=== PATIENT | female | born 1995 | race American Indian/Alaskan Native ===

== ENCOUNTER 2017-07-05 08:40 | Emergency (ER) | payer MEDICAID ==
[2017-07-05 09:06] VITALS: BP 127/78
--- NOTE | 2017-07-05 11:17 | Emergency Department Report ---
Minor Respiratory - HPI Chief Complaint: Sore Throat Stated Complaint: POSSIBLE STREP Time Seen by Provider: 07/05/17 11:09 Duration: 2 Days Pain Location: Throat Severity: moderate Minor Respiratory: Yes Rhinorrhea, Yes Sore Throat, Yes Able to Tolerate Fluids , Yes Fever, No Ear Pain, No Cough, No Sick Contacts, No Hemoptysis, No Chest Pain, No Shortness of Breath Other History: Pt reports sore throat, fever, and congestion x 2 days. ED Review of Systems ROS: Stated complaint: POSSIBLE STREP Other details as noted in HPI Comment: All other systems reviewed and negative Constitutional: denies: chills, fever Eyes: denies: eye pain, eye discharge, vision change ENT: throat pain, congestion. denies: ear pain Respiratory: denies: cough, shortness of breath, wheezing Cardiovascular: denies: chest pain, palpitations Endocrine: no symptoms reported Gastrointestinal: denies: abdominal pain, nausea, diarrhea Genitourinary: denies: urgency, dysuria, discharge Musculoskeletal: denies: back pain, joint swelling, arthralgia Skin: denies: rash, lesions Neurological: denies: headache, weakness, paresthesias Psychiatric: denies: anxiety, depression Hematological/Lymphatic: denies: easy bleeding, easy bruising ED Past Medical Hx - Past Medical History Previous Medical History?: No Hx Asthma: Yes - Surgical History Past Surgical History?: Yes Additional Surgical History: c-sectionx1 - Social History Smoking Status: Never Smoker Substance Use Type: None - Medications Home Medications: Home Medications Medication Instructions Recorded Confirmed Last Taken Type Albuterol Sulfate [Ventolin HFA] 2 puff IH Q4H PRN #1 hfa.aer.ad 02/13/15 Unknown Rx Fluticasone [Flonase] 2 spray NS QDAY #1 bottle 02/13/15 Unknown Rx Loratadine [Claritin] 10 mg PO DAILY #30 tablet 02/13/15 Unknown Rx Amoxicillin [Amoxicillin TAB] 875 mg PO BID #20 tablet 07/05/17 Unknown Rx predniSONE [Deltasone] 40 mg PO QDAY #10 tab 07/05/17 Unknown Rx Minor Respiratory Exam - Exam General: Vital signs noted. No distress. Alert and acting appropriately. HEENT: Yes Pharyngeal Erythema, Yes Pharyngeal Exudates (2+ exudative tonsillitis, no abscess seen), Yes Moist Mucous Membranes, No Rhinorrhea, No Conjuctival Injection, No Frontal Tenderness, No Maxillary Tenderness Ear: Neither TM Bulge, Neither TM Erythema, Neither EAC Pain, Neither EAC Discharge Neck: Yes Adenopathy (tender anterior cervical ), Yes Supple Lungs: Yes Good Air Exchange, No Wheezes, No Ronchi, No Stridor, No Cough, No Labored Respirations, No Retractions, No Use of Accessory Muscles, No Other Abnormal Lung Sounds Heart: Yes Regular, No Murmur Abdomen: Yes Normal Bowel Sounds, No Tenderness, No Peritoneal Signs Skin: No Rash, No Edema Neurologic: Alert and oriented, no deficits. Musculoskeletal: Unremarkable. ED Course Vital Signs 07/05/17 08:48 Temperature 98.5 F Pulse Rate 106 H Respiratory 18 Rate Blood Pressure 127/78 O2 Sat by Pulse 100 Oximetry - Reevaluation(s) Reevaluation #1: 07/05/17 11:15 Pt is in NAD stable for d/c. ED Medical Decision Making - Lab Data hcg neg, strep pos - Medical Decision Making Will treat for strep. Follow with PCP. - Differential Diagnosis strep, mono Critical care attestation.: If time is entered above; I have spent that time in minutes in the direct care of this critically ill patient, excluding procedure time. ED Disposition Clinical Impression: Streptococcal tonsillitis Disposition: - TO HOME OR SELFCARE Is pt being admited?: No Condition: Good Instructions: Strep Throat (ED) Prescriptions: Amoxicillin [Amoxicillin TAB] 875 mg PO BID #20 tablet predniSONE [Deltasone] 40 mg PO QDAY #10 tab Referrals: PRIMARY CARE, [Primary Care Provider] - 3-5 Days Forms: Work/School Release Form(ED) Time of Disposition: 11:16
== END 2017-07-05 11:24 | disposition home or self-care (01) ==
LOC: ED 08:40
DX: J03.00 Acute streptococcal tonsillitis, unspecified (principal)
CPT/HCPCS: 81025; 87430; 99283

== ENCOUNTER 2017-08-13 22:35 | Emergency (ER) | payer SELFPAY | END 2017-08-13 23:15 | disposition left against medical advice (07) | LOC: ED 22:35 | DX: R42 Dizziness and giddiness (principal); N64.4 Mastodynia; Z53.21 Procedure and treatment not carried out due to patient leaving prior to being seen by health care provider ==

== ENCOUNTER 2017-11-09 20:12 | Emergency (ER) | payer SELFPAY ==
[2017-11-09 21:03] LABS: Basophils % (Auto) 0.9 % (0.0-1.8); Eosinophils # (Auto) 0.3 K/mm3 (0.0-0.4); Hematocrit 38.9 % (30.3-42.9); Hemoglobin 12.4 gm/dl (10.1-14.3); Lymphocytes # (Auto) 2.1 K/mm3 (1.2-5.4); Lymphocytes % (Auto) 42.6 % (13.4-35.0); Mean Corpuscular HGB Conc 32 % (30-34); Mean Corpuscular Hemoglobin 28 pg (28-32); Mean Corpuscular Volume 89 fl (79-97); Monocytes # (Auto) 0.3 K/mm3 (0.0-0.8); Monocytes % (Auto) 6.4 % (0.0-7.3); Platelet Count 414 K/mm3 (140-440); Red Blood Count 4.39 M/mm3 (3.65-5.03); Red Cell Distribution Width 13.3 % (13.2-15.2)
[2017-11-09 21:39] LABS: Bilirubin,Urine NEG (Negative); Blood,Urine MOD (Negative); Color,Urine Yellow (Yellow); Mucus,Urine FEW /HPF; Urobilinogen,Urine < 2.0 mg/dL (<2.0)
--- NOTE | 2017-11-09 22:01 | Emergency Department Report ---
HPI - General Chief Complaint: Vaginal Bleeding Time Seen by Provider: 11/09/17 21:47 - HPI HPI: Room 10 The patient is a 22-year-old female presenting with chief complaint of pelvic pain and vaginal bleeding. The patient states past 2 days she is lower pelvic pain that was initially intermittent but now constant. The patient states for the past 2 days she has had heavier than normal vaginal bleeding. The patient states she has an implanted control medication but cannot remember the name (was placed approximately 2 years ago). The patient states her cycles are usually extremely light and irregular since the implant. The patient states past 2 days her vaginal bleeding has been heavier than normal. The patient admits to dysuria but denies vaginal discharge. Patient denies any history of fever Location: [See above] Duration: 2 days Quality: Cramping Severity: Moderate Modifying factors: [see above] Context: [see above] Mode of transportation: [not driving] ED Past Medical Hx - Past Medical History Previous Medical History?: Yes Hx Asthma: Yes - Surgical History Past Surgical History?: Yes Additional Surgical History: c-sectionx1 - Family History Family history: no significant - Social History Smoking Status: Never Smoker Substance Use Type: None (denies illicit drug use), Alcohol (occasional) - Medications Home Medications: Home Medications Medication Instructions Recorded Confirmed Last Taken Type Albuterol Sulfate [Ventolin HFA] 2 puff IH Q4H PRN #1 hfa.aer.ad 02/13/15 Unknown Rx Fluticasone [Flonase] 2 spray NS QDAY #1 bottle 02/13/15 Unknown Rx Loratadine [Claritin] 10 mg PO DAILY #30 tablet 02/13/15 Unknown Rx Amoxicillin [Amoxicillin TAB] 875 mg PO BID #20 tablet 07/05/17 Unknown Rx predniSONE [Deltasone] 40 mg PO QDAY #10 tab 07/05/17 Unknown Rx Ciprofloxacin HCl [Ciprofloxacin 500 mg PO BID #20 tablet 11/10/17 Unknown Rx TAB] Ibuprofen [Motrin 800 MG tab] 800 mg PO Q8HR PRN #20 tablet 11/10/17 Unknown Rx traMADol [Ultram] 50 mg PO Q6HR PRN #14 tablet 11/10/17 Unknown Rx ED Review of Systems ROS: Stated complaint: PELVIC PAIN Other details as noted in HPI Constitutional: denies: fever Gastrointestinal: abdominal pain Genitourinary: dysuria, abnormal menses. denies: discharge Physical Exam - Physical Exam Vital Signs: Vital Signs 11/09/17 20:30 Temperature 97.7 F Pulse Rate 82 Respiratory 17 Rate Blood Pressure 146/73 O2 Sat by Pulse 100 Oximetry Physical Exam: GENERAL: The patient is well-developed well-nourished female lying on stretcher not appear to be in acute distress. [] HEENT: Normocephalic. Atraumatic. Extraocular motions are intact. Patient has moist mucous membranes. NECK: Supple. Trachea midline CHEST/LUNGS: Clear to auscultation. There is no respiratory distress noted. HEART/CARDIOVASCULAR: Regular. There is no tachycardia. There is no gallop rub or murmur. ABDOMEN: Abdomen is soft, with discomfort to palpation in the suprapubic region. Patient has normal bowel sounds. There is no abdominal distention. SKIN: There is no rash. There is no edema. There is no diaphoresis. NEURO: The patient is awake, alert, and oriented. The patient is cooperative. The patient has normal speech MUSCULOSKELETAL: There is bilateral CVA tenderness. There is no evidence of acute injury. ED Course Vital Signs 11/09/17 20:30 Temperature 97.7 F Pulse Rate 82 Respiratory 17 Rate Blood Pressure 146/73 O2 Sat by Pulse 100 Oximetry ED Medical Decision Making - Lab Data Result diagrams: 11/09/17 20:44 Laboratory Tests 11/09/17 11/09/17 11/09/17 20:44 20:44 20:44 WBC 5.0 RBC 4.39 Hgb 12.4 Hct 38.9 MCV 89 MCH 28 MCHC 32 RDW 13.3 Plt Count 414 Lymph % (Auto) 42.6 H [place] % (Auto) 6.4 Eos % (Auto) 6.0 H Baso % (Auto) 0.9 Lymph # 2.1 [place] # 0.3 Eos # 0.3 Baso # 0.0 Seg Neutrophils % 44.1 Seg Neutrophils # 2.2 HCG, Quant < 2 Urine Color Urine Turbidity Urine pH Ur Specific [place] Urine Protein Urine Glucose (UA) Urine Ketones Urine Blood Urine Nitrite Urine Bilirubin Urine Urobilinogen Ur Leukocyte Esterase Urine WBC (Auto) Urine RBC (Auto) U Epithel Cells (Auto) Urine Mucus Blood Type B POSITIVE Antibody Screen Negative 11/09/17 21:05 WBC RBC Hgb Hct MCV MCH MCHC RDW Plt Count Lymph % (Auto) [place] % (Auto) Eos % (Auto) Baso % (Auto) Lymph # [place] # Eos # Baso # Seg Neutrophils % Seg Neutrophils # HCG, Quant Urine Color Yellow Urine Turbidity Clear Urine pH 7.0 Ur Specific [place] 1.025 Urine Protein 30 mg/dl Urine Glucose (UA) Neg Urine Ketones Neg Urine Blood Mod Urine Nitrite Neg Urine Bilirubin Neg Urine Urobilinogen < 2.0 Ur Leukocyte Esterase Mod Urine WBC (Auto) 103.0 H Urine RBC (Auto) 7.0 U Epithel Cells (Auto) 8.0 Urine Mucus Few Blood Type Antibody Screen Wet prep-no clue cells, yeast or Trichomonas seen - Radiology Data Radiology results: report reviewed (pelvic ultrasound), image reviewed (pelvic ultrasound) [facility] [address] [id number] Ultrasound Report Signed Patient: LEWIS DECKER MR#: [id number] : 1995 Acct:[id number] Age/Sex: 22 / F ADM Date: 11/09/17 Loc: ED Attending Dr: Ordering Physician: ALOK WEISS MD Date of Service: 11/09/17 Procedure(s): US transvaginal Accession Number(s): [id number] cc: ALOK WEISS MD FINAL REPORT EXAM: US TRANSVAGINAL HISTORY: abnormal vaginal bleeding, pelvic pain TECHNIQUE: Ultrasound pelvis transvaginal PRIORS: None. FINDINGS: The uterus measures 6.4 x 4.0 x 5.0 centimeters. No myometrial abnormalities are identified. Endometrial stripe is within normal limits 0.59 centimeters Right ovary is 5.0 x 3.3 x 4.3 centimeters. A 3.6 centimeter right ovarian cyst is noted Left ovary is 2.8 x 1.4 x 2.4 centimeters. No free fluid identified in the cul-de-sac IMPRESSION: 3.6 centimeter right ovarian cyst Otherwise negative study Transcribed By: BENSON Dictated By: KITA GABRIEL MD Electronically Authenticated By: KITA GABRIEL MD Signed Date/Time: 11/09/172240 DD/ 40 TD/TT: 11/09/172240 - Differential Diagnosis missed , UTI, pyelonephritis, uterine fibroids Critical care attestation.: If time is entered above; I have spent that time in minutes in the direct care of this critically ill patient, excluding procedure time. ED Disposition Clinical Impression: Pyelonephritis, Acute pelvic pain, Right ovarian cyst Disposition: TO HOME OR SELFCARE Is pt being admited?: No Does the pt Need Aspirin: No Condition: Stable Instructions: Urinary Tract Infection in Women (ED) Additional Instructions: Return to the emergency department immediately should you develop worsening symptoms, fever, inability to tolerate food or liquid or any other concerns. 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 Please follow-up with him for further evaluation) Time of Disposition: 00:19
--- NOTE | 2017-11-09 22:45 | Ultrasound Report ---
FINAL REPORT EXAM: US PELVIC COMPLETE HISTORY: abnormal vaginal bleeding, pelvic pain TECHNIQUE: Ultrasound pelvis transabdominal PRIORS: None. FINDINGS: The uterus measures 6.4 x 4.0 x 5.0 centimeters. No myometrial abnormalities are identified. Endometrial stripe is within normal limits 0.59 centimeters Right ovary is 5.0 x 3.3 x 4.3 centimeters. A 3.6 centimeter right ovarian cyst is noted Left ovary is 2.8 x 1.4 x 2.4 centimeters. No free fluid identified in the cul-de-sac IMPRESSION: 3.6 centimeter right ovarian cyst Otherwise negative study
--- NOTE | 2017-11-09 22:46 | Ultrasound Report ---
FINAL REPORT EXAM: US TRANSVAGINAL HISTORY: abnormal vaginal bleeding, pelvic pain TECHNIQUE: Ultrasound pelvis transvaginal PRIORS: None. FINDINGS: The uterus measures 6.4 x 4.0 x 5.0 centimeters. No myometrial abnormalities are identified. Endometrial stripe is within normal limits 0.59 centimeters Right ovary is 5.0 x 3.3 x 4.3 centimeters. A 3.6 centimeter right ovarian cyst is noted Left ovary is 2.8 x 1.4 x 2.4 centimeters. No free fluid identified in the cul-de-sac IMPRESSION: 3.6 centimeter right ovarian cyst Otherwise negative study
[2017-11-10] MEDS ORDERED: ROCEPHIN IM ONE (00:07)
[2017-11-10] MEDS ORDERED: XYLOCAINE 1% MPF 5 mL INFILTRATI ONE (00:07)
[2017-11-10] MEDS ORDERED: ZITHROMAX PO ONE (00:07)
[2017-11-10 00:45] VITALS: BP 119/57
== END 2017-11-10 00:51 | disposition home or self-care (01) ==
LOC: ED 20:12
DX: N12 Tubulo-interstitial nephritis, not specified as acute or chronic (principal); N83.201 Unspecified ovarian cyst, right side; J45.909 Unspecified asthma, uncomplicated
CPT/HCPCS: 36415; 76830; 76856; 81001; 84702; 85025; 86850; 86900; 86901; 87210; 87591; 96372; 99284; J0696

== ENCOUNTER 2018-11-09 13:32 | Emergency (ER) | payer MEDICAID ==
[2018-11-09 13:43] VITALS: BP 135/70
--- NOTE | 2018-11-09 13:44 | Emergency Department Report ---
Chief Complaint: Sore Throat Stated Complaint: DIZZY/THROAT PAIN Time Seen by Provider: 11/09/18 13:43 - HPI History of Present Illness: simple urti nontoxic no fever mse completed - Exam Vital Signs: Vital Signs 11/09/18 13:41 Temperature 97.8 F Pulse Rate 100 H Respiratory 20 Rate Blood Pressure 135/70 O2 Sat by Pulse 98 Oximetry MSE screening note: Focused history and physical exam performed. Due to findings the following was ordered: ED Disposition for MSE Condition: Stable
--- NOTE | 2018-11-09 15:40 | Emergency Department Report ---
ED ENT HPI - General Chief complaint: Sore Throat Stated complaint: DIZZY/THROAT PAIN Time Seen by Provider: 11/09/18 13:43 Source: patient Mode of arrival: Ambulatory Limitations: No Limitations - History of Present Illness MD complaint: sore throat -: days(s) (3) Severity: moderate Quality: sharp Consistency: constant Worsens with: swallowing Associated Symptoms: fever, cough - Related Data Previous Rx's Medication Instructions Recorded Last Taken Type Albuterol Sulfate [Ventolin HFA] 2 puff IH Q4H PRN #1 hfa.aer.ad 02/13/15 Unknown Rx Fluticasone [Flonase] 2 spray NS QDAY #1 bottle 02/13/15 Unknown Rx Loratadine [Claritin] 10 mg PO DAILY #30 tablet 02/13/15 Unknown Rx Amoxicillin [Amoxicillin TAB] 875 mg PO BID #20 tablet 07/05/17 Unknown Rx predniSONE [Deltasone] 40 mg PO QDAY #10 tab 07/05/17 Unknown Rx Ciprofloxacin HCl [Ciprofloxacin 500 mg PO BID #20 tablet 11/10/17 Unknown Rx TAB] Ibuprofen [Motrin 800 MG tab] 800 mg PO Q8HR PRN #20 tablet 11/10/17 Unknown Rx traMADol [Ultram] 50 mg PO Q6HR PRN #14 tablet 11/10/17 Unknown Rx Amoxicillin [Amoxicillin TAB] 875 mg PO BID #20 tablet 11/09/18 Unknown Rx Allergies Allergy/AdvReac Type Severity Reaction Status Date / Time No Known Allergies Allergy Verified 02/13/15 02:15 ED Dental HPI - General Chief complaint: Sore Throat Stated complaint: DIZZY/THROAT PAIN Time Seen by Provider: 11/09/18 13:43 Source: patient Mode of arrival: Ambulatory Limitations: No Limitations - Related Data Previous Rx's Medication Instructions Recorded Last Taken Type Albuterol Sulfate [Ventolin HFA] 2 puff IH Q4H PRN #1 hfa.aer.ad 02/13/15 Unknown Rx Fluticasone [Flonase] 2 spray NS QDAY #1 bottle 02/13/15 Unknown Rx Loratadine [Claritin] 10 mg PO DAILY #30 tablet 02/13/15 Unknown Rx Amoxicillin [Amoxicillin TAB] 875 mg PO BID #20 tablet 07/05/17 Unknown Rx predniSONE [Deltasone] 40 mg PO QDAY #10 tab 07/05/17 Unknown Rx Ciprofloxacin HCl [Ciprofloxacin 500 mg PO BID #20 tablet 11/10/17 Unknown Rx TAB] Ibuprofen [Motrin 800 MG tab] 800 mg PO Q8HR PRN #20 tablet 11/10/17 Unknown Rx traMADol [Ultram] 50 mg PO Q6HR PRN #14 tablet 11/10/17 Unknown Rx Amoxicillin [Amoxicillin TAB] 875 mg PO BID #20 tablet 11/09/18 Unknown Rx Allergies Allergy/AdvReac Type Severity Reaction Status Date / Time No Known Allergies Allergy Verified 02/13/15 02:15 ED Review of Systems ROS: Stated complaint: DIZZY/THROAT PAIN Other details as noted in HPI Comment: All other systems reviewed and negative Constitutional: chills. denies: fever ENT: throat pain Respiratory: cough. denies: orthopnea, shortness of breath, SOB with exertion, SOB at rest, wheezing Cardiovascular: denies: chest pain, palpitations Gastrointestinal: denies: abdominal pain, nausea, vomiting, diarrhea, constipation, hematemesis, melena, hematochezia Musculoskeletal: denies: back pain Neurological: denies: headache, weakness, numbness, paresthesias, confusion ED Past Medical Hx - Past Medical History Previous Medical History?: No Hx Asthma: Yes - Surgical History Past Surgical History?: Yes Additional Surgical History: c-sectionx1 - Social History Smoking Status: Never Smoker Substance Use Type: None - Medications Home Medications: Home Medications Medication Instructions Recorded Confirmed Last Taken Type Albuterol Sulfate [Ventolin HFA] 2 puff IH Q4H PRN #1 hfa.aer.ad 02/13/15 Unknown Rx Fluticasone [Flonase] 2 spray NS QDAY #1 bottle 02/13/15 Unknown Rx Loratadine [Claritin] 10 mg PO DAILY #30 tablet 02/13/15 Unknown Rx Amoxicillin [Amoxicillin TAB] 875 mg PO BID #20 tablet 07/05/17 Unknown Rx predniSONE [Deltasone] 40 mg PO QDAY #10 tab 07/05/17 Unknown Rx Ciprofloxacin HCl [Ciprofloxacin 500 mg PO BID #20 tablet 11/10/17 Unknown Rx TAB] Ibuprofen [Motrin 800 MG tab] 800 mg PO Q8HR PRN #20 tablet 11/10/17 Unknown Rx traMADol [Ultram] 50 mg PO Q6HR PRN #14 tablet 11/10/17 Unknown Rx Amoxicillin [Amoxicillin TAB] 875 mg PO BID #20 tablet 11/09/18 Unknown Rx ED Physical Exam - General Limitations: No Limitations General appearance: alert, in no apparent distress - Head Head exam: Present: atraumatic, normocephalic, normal inspection - Eye Eye exam: Present: normal appearance - ENT ENT exam: Present: other (pharyngeal erythema, tonsillar exudate.) - Neck Neck exam: Present: normal inspection, full ROM. Absent: tenderness, meningismus, lymphadenopathy, thyromegaly - Respiratory Respiratory exam: Present: normal lung sounds bilaterally - Cardiovascular Cardiovascular Exam: Present: regular rate, normal rhythm, normal heart sounds - GI/Abdominal GI/Abdominal exam: Present: soft, normal bowel sounds. Absent: distended, tenderness, guarding, rebound, rigid, organomegaly, mass, bruit, pulsatile mass - Extremities Exam Extremities exam: Present: normal inspection, full ROM, normal capillary refill - Back Exam Back exam: Present: normal inspection, full ROM. Absent: CVA tenderness (R), CVA tenderness (L), muscle spasm, paraspinal tenderness, vertebral tenderness, rash noted - Neurological Exam Neurological exam: Present: alert, oriented X3, CN II-XII intact, normal gait, reflexes normal - Skin Skin exam: Present: warm, intact, normal color ED Course Vital Signs 11/09/18 13:41 Temperature 97.8 F Pulse Rate 100 H Respiratory 20 Rate Blood Pressure 135/70 O2 Sat by Pulse 98 Oximetry ED Medical Decision Making - Medical Decision Making Strep test is negative but patient has tonsillar exudate, patient treated with amoxicillin for 10 days. Critical care attestation.: If time is entered above; I have spent that time in minutes in the direct care of this critically ill patient, excluding procedure time. ED Disposition Clinical Impression: Pharyngitis Disposition: DC-01 TO HOME OR SELFCARE Is pt being admited?: No Condition: Stable Instructions: Pharyngitis (ED) Prescriptions: Amoxicillin [Amoxicillin TAB] 875 mg PO BID #20 tablet Referrals: [facility] [Provider Group] - 3-5 Days
[2018-11-09 16:11] LABS: Bacteria,Urine 1+ /HPF (Negative); Bilirubin,Urine NEG (Negative); Blood,Urine NEG (Negative); Color,Urine Yellow (Yellow); Mucus,Urine 1+ /HPF; Protein,Urine <15 mg/dL mg/dL (Negative)
== END 2018-11-09 17:12 | disposition home or self-care (01) ==
LOC: ED 13:32
DX: J02.9 Acute pharyngitis, unspecified (principal); J45.909 Unspecified asthma, uncomplicated
CPT/HCPCS: 81001; 87116; 87430; 99283

== ENCOUNTER 2019-01-09 18:06 | Emergency (ER) | payer MEDICAID ==
[2019-01-09 18:16] VITALS: BP 127/70
[2019-01-09 19:09] LABS: Alanine Aminotransferase 41 units/L (7-56); BUN/Creatinine Ratio 9; Blood Urea Nitrogen 6 mg/dL (7-17); Calcium 8.7 mg/dL (8.4-10.2); Hemolysis Index 61
[2019-01-09 19:15] LABS: Bilirubin,Urine NEG (Negative); Blood,Urine NEG (Negative); Color,Urine Yellow (Yellow); Mucus,Urine 1+ /HPF; Protein,Urine <15 mg/dL mg/dL (Negative); Urobilinogen,Urine < 2.0 mg/dL (<2.0)
[2019-01-09 19:17] LABS: Basophils % (Auto) 0.3 % (0.0-1.8); Eosinophils # (Auto) 0.3 K/mm3 (0.0-0.4); Eosinophils % (Auto) 6.1 % (0.0-4.3); Hematocrit 36.8 % (30.3-42.9); Lymphocytes # (Auto) 1.7 K/mm3 (1.2-5.4); Lymphocytes % (Auto) 32.6 % (13.4-35.0); Mean Corpuscular HGB Conc 33 % (30-34); Mean Corpuscular Volume 90 fl (79-97); Monocytes # (Auto) 0.4 K/mm3 (0.0-0.8); Monocytes % (Auto) 7.4 % (0.0-7.3); Platelet Count 365 K/mm3 (140-440); Red Blood Count 4.07 M/mm3 (3.65-5.03); Red Cell Distribution Width 14.3 % (13.2-15.2)
--- NOTE | 2019-01-09 20:22 | Emergency Department Report ---
ED Female HPI - General Chief complaint: Abdominal Pain Stated complaint: PELVIC PAIN/SWOLLEN FEET/VOMITTING Time Seen by Provider: 01/09/19 20:10 Source: patient Mode of arrival: Ambulatory Limitations: No Limitations - History of Present Illness Initial comments: Pt is a 23 yo female who presents to the ED with c/o pelvic pain that began 2 weeks ago. She has associated nausea and a couple episodes of diarrhea. she also is experiencing vaginal itching and irritation. she denies any dysuria, emesis, fever, vaginal discharge. The patient states she is sexually active and occasionally uses protection, she states her partner was recently diagnosed with chlamydia and she would like to receive testing at this time. she denies any hx of STD previously. LNMP December 02. she states she began having spotting yesterday like she was about to start her cycle. she states she also experiences diarrhea around her cycle. - Related Data Previous Rx's Medication Instructions Recorded Last Taken Type Albuterol Sulfate [Ventolin HFA] 2 puff IH Q4H PRN #1 hfa.aer.ad 02/13/15 Unknown Rx Fluticasone [Flonase] 2 spray NS QDAY #1 bottle 02/13/15 Unknown Rx Loratadine [Claritin] 10 mg PO DAILY #30 tablet 02/13/15 Unknown Rx Amoxicillin [Amoxicillin TAB] 875 mg PO BID #20 tablet 07/05/17 Unknown Rx predniSONE [Deltasone] 40 mg PO QDAY #10 tab 07/05/17 Unknown Rx Ciprofloxacin HCl [Ciprofloxacin 500 mg PO BID #20 tablet 11/10/17 Unknown Rx TAB] Ibuprofen [Motrin 800 MG tab] 800 mg PO Q8HR PRN #20 tablet 11/10/17 Unknown Rx traMADol [Ultram] 50 mg PO Q6HR PRN #14 tablet 11/10/17 Unknown Rx Amoxicillin [Amoxicillin TAB] 875 mg PO BID #20 tablet 11/09/18 Unknown Rx Allergies Allergy/AdvReac Type Severity Reaction Status Date / Time No Known Allergies Allergy Verified 02/13/15 02:15 ED Review of Systems ROS: Stated complaint: PELVIC PAIN/SWOLLEN FEET/VOMITTING Other details as noted in HPI Comment: All other systems reviewed and negative ED Past Medical Hx - Past Medical History Previous Medical History?: Yes Hx Asthma: Yes - Surgical History Past Surgical History?: Yes Additional Surgical History: c-sectionx1 - Social History Smoking Status: Never Smoker Substance Use Type: None - Medications Home Medications: Home Medications Medication Instructions Recorded Confirmed Last Taken Type Albuterol Sulfate [Ventolin HFA] 2 puff IH Q4H PRN #1 hfa.aer.ad 02/13/15 Unknown Rx Fluticasone [Flonase] 2 spray NS QDAY #1 bottle 02/13/15 Unknown Rx Loratadine [Claritin] 10 mg PO DAILY #30 tablet 02/13/15 Unknown Rx Amoxicillin [Amoxicillin TAB] 875 mg PO BID #20 tablet 07/05/17 Unknown Rx predniSONE [Deltasone] 40 mg PO QDAY #10 tab 07/05/17 Unknown Rx Ciprofloxacin HCl [Ciprofloxacin 500 mg PO BID #20 tablet 11/10/17 Unknown Rx TAB] Ibuprofen [Motrin 800 MG tab] 800 mg PO Q8HR PRN #20 tablet 11/10/17 Unknown Rx traMADol [Ultram] 50 mg PO Q6HR PRN #14 tablet 11/10/17 Unknown Rx Amoxicillin [Amoxicillin TAB] 875 mg PO BID #20 tablet 11/09/18 Unknown Rx ED Physical Exam - General Limitations: No Limitations General appearance: alert, in no apparent distress - Head Head exam: Present: atraumatic, normocephalic - Eye Eye exam: Present: normal appearance, PERRL - ENT ENT exam: Present: mucous membranes moist - Respiratory Respiratory exam: Present: normal lung sounds bilaterally. Absent: respiratory distress, wheezes, rales, rhonchi, stridor, chest wall tenderness, accessory muscle use, decreased breath sounds, prolonged expiratory - Cardiovascular Cardiovascular Exam: Present: regular rate, normal rhythm, normal heart sounds. Absent: systolic murmur, diastolic murmur, rubs, gallop - GI/Abdominal GI/Abdominal exam: Present: soft, tenderness (mild suprapubic discomfort to palpation, no tenderness to palpation of any of the other quadrants of the abdomen), normal bowel sounds. Absent: distended, guarding, rebound, rigid - External exam: Present: normal external exam. 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 Absent: erythema, vaginal bleeding, foreign body, tissue, laceration Bi-manual exam: Present: normal bi-manual exam. Absent: cervical motion tendernes, adnexal tenderness, adnexal mass, uterine enlargement, uterine tenderness - Back Exam Back exam: Absent: CVA tenderness (R), CVA tenderness (L) - Neurological Exam Neurological exam: Present: alert, oriented X3 - Psychiatric Psychiatric exam: Present: normal affect, normal mood - Skin Skin exam: Present: warm, dry, intact ED Course Vital Signs 01/09/19 01/09/19 18:11 21:51 Temperature 98.9 F 98.9 F Pulse Rate 81 81 Respiratory 16 16 Rate Blood Pressure 127/70 O2 Sat by Pulse 97 97 Oximetry ED Medical Decision Making - Lab Data Result diagrams: 01/09/19 18:23 01/09/19 18:23 Lab Results 01/09/19 01/09/19 01/09/19 Range/Units 18:23 18:23 18:23 WBC 5.3 (4.5-11.0) K/mm3 RBC 4.07 (3.65-5.03) M/mm3 Hgb 12.0 (10.1-14.3) gm/dl Hct 36.8 (30.3-42.9) % MCV 90 (79-97) fl MCH 30 (28-32) pg MCHC 33 (30-34) % RDW 14.3 (13.2-15.2) % Plt Count 365 (140-440) K/mm3 Lymph % (Auto) 32.6 (13.4-35.0) % Hayes % (Auto) 7.4 H (0.0-7.3) % Eos % (Auto) 6.1 H (0.0-4.3) % Baso % (Auto) 0.3 (0.0-1.8) % Lymph # 1.7 (1.2-5.4) K/mm3 Hayes # 0.4 (0.0-0.8) K/mm3 Eos # 0.3 (0.0-0.4) K/mm3 Baso # 0.0 (0.0-0.1) K/mm3 Seg Neutrophils % 53.6 (40.0-70.0) % Seg Neutrophils # 2.9 (1.8-7.7) K/mm3 Sodium 137 (137-145) mmol/L Potassium 4.3 (3.6-5.0) mmol/L Chloride 102.5 (98-107) mmol/L Carbon Dioxide 22 (22-30) mmol/L Anion Gap 17 mmol/L BUN 6 L (7-17) mg/dL Creatinine 0.7 (0.7-1.2) mg/dL Estimated GFR > 60 ml/min BUN/Creatinine Ratio 9 % Glucose 84 (65-100) mg/dL Calcium 8.7 (8.4-10.2) mg/dL Total Bilirubin 0.40 (0.1-1.2) mg/dL AST 85 H (5-40) units/L ALT 41 (7-56) units/L Alkaline Phosphatase 68 (35-129) units/L Total Protein 7.4 (6.3-8.2) g/dL Albumin 4.0 (3.9-5) g/dL Albumin/Globulin Ratio 1.2 % HCG, Qual Negative (Negative) Urine Color (Yellow) Urine Turbidity (Clear) Urine pH (5.0-7.0) Ur Specific [place] (1.003-1.030) Urine Protein (Negative) mg/dL Urine Glucose (UA) (Negative) mg/dL Urine Ketones (Negative) mg/dL Urine Blood (Negative) Urine Nitrite (Negative) Urine Bilirubin (Negative) Urine Urobilinogen (<2.0) mg/dL Ur Leukocyte Esterase (Negative) Urine WBC (Auto) (0.0-6.0) /HPF Urine RBC (Auto) (0.0-6.0) /HPF U Epithel Cells (Auto) (0-13.0) /HPF Urine Mucus /HPF 01/09/ Range/Units 18:43 WBC (4.5-11.0) K/mm3 RBC (3.65-5.03) M/mm3 Hgb (10.1-14.3) gm/dl Hct (30.3-42.9) % MCV (79-97) fl MCH (28-32) pg MCHC (30-34) % RDW (13.2-15.2) % Plt Count (140-440) K/mm3 Lymph % (Auto) (13.4-35.0) % Hayes % (Auto) (0.0-7.3) % Eos % (Auto) (0.0-4.3) % Baso % (Auto) (0.0-1.8) % Lymph # (1.2-5.4) K/mm3 Hayes # (0.0-0.8) K/mm3 Eos # (0.0-0.4) K/mm3 Baso # (0.0-0.1) K/mm3 Seg Neutrophils % (40.0-70.0) % Seg Neutrophils # (1.8-7.7) K/mm3 Sodium (137-145) mmol/L Potassium (3.6-5.0) mmol/L Chloride (98-107) mmol/L Carbon Dioxide (22-30) mmol/L Anion Gap mmol/L BUN (7-17) mg/dL Creatinine (0.7-1.2) mg/dL Estimated GFR ml/min BUN/Creatinine Ratio % Glucose (65-100) mg/dL Calcium (8.4-10.2) mg/dL Total Bilirubin (0.1-1.2) mg/dL AST (5-40) units/L ALT (7-56) units/L Alkaline Phosphatase (35-129) units/L Total Protein (6.3-8.2) g/dL Albumin (3.9-5) g/dL Albumin/Globulin Ratio % HCG, Qual (Negative) Urine Color Yellow (Yellow) Urine Turbidity Slightly-cloudy (Clear) Urine pH 6.0 (5.0-7.0) Ur Specific [place] 1.025 (1.003-1.030) Urine Protein <15 mg/dl (Negative) mg/dL Urine Glucose (UA) Neg (Negative) mg/dL Urine Ketones Neg (Negative) mg/dL Urine Blood Neg (Negative) Urine Nitrite Neg (Negative) Urine Bilirubin Neg (Negative) Urine Urobilinogen < 2.0 (<2.0) mg/dL Ur Leukocyte Esterase Neg (Negative) Urine WBC (Auto) 1.0 (0.0-6.0) /HPF Urine RBC (Auto) 1.0 (0.0-6.0) /HPF U Epithel Cells (Auto) 2.0 (0-13.0) /HPF Urine Mucus 1+ /HPF Microbiology 01/09/19 Unknown Cervix Wet Prep - Final - Medical Decision Making Pt is a 23 yo female who presents to the ED with c/o pelvic pain that began 2 weeks ago. She has associated nausea and a couple episodes of diarrhea. she also is experiencing vaginal itching and irritation. she denies any dysuria, emesis, fever, vaginal discharge. The patient states she is sexually active and occasionally uses protection, she states her partner was recently diagnosed with chlamydia and she would like to receive testing at this time. she denies any hx of STD previously. LNMP December 02. she states she began having spotting yesterday like she was about to start her cycle. she states she also experiences diarrhea around her cycle. UA is normal. urine preg is negative. wet prep with no BV, trichomonas, or yeast. pt has white/yellow discharge on exam, no CMT present, no abd tenderness, no leukocytosis, pt tolerating PO intake while in the ED. pt swabbed for G/C, treated with azithromycin and ceftriaxone. advised pt that G/C results could be obtained by medical records in 1 week. abstain from sexual intercourse for 10 days. have partner tested and treated. if concerned for any other STDs be seen by health department, [facility], or PCP. follow up with [facility] in the next 2-3 days for further evaluation. follow up with PCP in the next 2-3 days. Return to the ED for any new or worsening symptoms. Critical care attestation.: If time is entered above; I have spent that time in minutes in the direct care of this critically ill patient, excluding procedure time. ED Disposition Clinical Impression: Pelvic pain, Screen for STD (sexually transmitted disease) Disposition: TO HOME OR SELFCARE Is pt being admited?: No Does the pt Need Aspirin: No Condition: Stable Instructions: Sexually Transmitted Diseases (ED), Safe Sex (ED), Abdominal Pain (ED) Additional Instructions: Please follow up with an [facility] in the next 2-3 days for further evaluation. Please follow up with a primary care doctor in the next 2-3 days. return to the emergency room for any new or worsening symptoms. May check back with medical records in one week for results of tests. have any partner tested and treated. if concerned for any other STDs please be seen by law firm receptionist, health department, or primary care doctor. Referrals: KARINE JAQUEZ MD [Primary Care Provider] - 2-3 Days [facility] [Provider Group] - 2-3 Days CATALINA WALLACE MD [Staff Physician] - 2-3 Days Time of Disposition: 21:20 Print Language: CUBAN
[2019-01-09] MEDS ORDERED: ROCEPHIN IM ONE (21:02)
[2019-01-09] MEDS ORDERED: ZITHROMAX PO ONE (21:02)
[2019-01-09] MEDS ORDERED: XYLOCAINE 1% MPF 5 mL INFILTRATI ONE (21:02)
== END 2019-01-09 21:52 | disposition home or self-care (01) ==
LOC: ED 18:06
DX: R10.2 Pelvic and perineal pain (principal); Z11.3 Encounter for screening for infections with a predominantly sexual mode of transmission; J45.909 Unspecified asthma, uncomplicated; N89.8 Other specified noninflammatory disorders of vagina
CPT/HCPCS: 36415; 80053; 81001; 84703; 85025; 87210; 87591; 96372; 99284; J0696

== ENCOUNTER 2019-01-31 19:34 | Emergency (ER) | payer MEDICAID ==
--- NOTE | 2019-01-31 20:19 | Event Note ---
ED Screening Note Date of service: 01/31/19 Time: 20:16 ED Screening Note: 23 year old female complains of pelvic pain. Positive home . No vag bleeding or vag discharge. This initial assessment/diagnostic orders/clinical plan/treatment(s) is/are subject to change based on patients health status, clinical progression and re- assessment by fellow clinical providers in the ED. Further treatment and workup at subsequent clinical providers discretion. Patient/guardian urged not to elope from the ED as their condition may be serious if not clinically assessed and managed. Initial orders include:
[2019-01-31 21:25] LABS: Bilirubin,Urine NEG (Negative); Blood,Urine SM (Negative); Calcium Oxalate Crystals,Urine 2+; Color,Urine Yellow (Yellow); Mucus,Urine 1+ /HPF
--- NOTE | 2019-01-31 22:36 | Ultrasound Report ---
PROCEDURE: US OB TRANSVAGINAL TECHNIQUE: Ultrasound transvaginal obstetrical HISTORY: + preg pelvic pain. COMPARISONS: FINDINGS: There is a gestational sac in the uterus sac size mean diameter 0.60 cm. Stereotactic or pole i dentified at this time. By sac diameter estimated gestational age of 5 weeks 2 days No focal myometrial abnormality identified No free fluid seen in the cul-de-sac. IMPRESSION: Probable gestational sac within the uterus. No structures identified at this time. Continued fo llow-up recommended.. This document is electronically signed by Bebo Ramirez MD., January 31 2019 10:34:30 PM ET
--- NOTE | 2019-01-31 22:40 | Ultrasound Report ---
PROCEDURE: US OB <= 14 WEEKS FETUS TECHNIQUE: HISTORY: + preg pelvic pain. COMPARISONS: FINDINGS: There is a gestational sac in the uterus sac size mean diameter 0.60 cm. Stereotactic or pole i dentified at this time. By sac diameter estimated gestational age of 5 weeks 2 days No focal myometrial abnormality identified No free fluid seen in the cul-de-sac. IMPRESSION: Probable gestational sac within the uterus. No structures identified at this time. Continued fo llow-up recommended.. This document is electronically signed by Bebo Ramirez MD., January 31 2019 10:38:46 PM ET
[2019-02-01 01:26] VITALS: BP 127/72
--- NOTE | 2019-02-01 02:17 | Emergency Department Report ---
ED Abdominal Pain HPI - General Chief Complaint: Abdominal Pain Stated Complaint: ABD PAIN Time Seen by Provider: 02/01/19 01:39 Source: patient Mode of arrival: Ambulatory Limitations: No Limitations - History of Present Illness Initial Comments: 23-year-old female with suprapubic pain 1 month. Patient reports vaginal spotting. Took home test yesterday and it was positive. Patient seen previously for this pain, but was told that she was not at that time. MD Complaint: abdominal pain -: month(s) (1) Location: suprapubic Radiation: none Migration to: no migration Severity: mild Severity scale (0 -10): 1 Quality: cramping Consistency: intermittent Improves With: nothing Worsens With: nothing Associated Symptoms: denies: dysuria - Related Data Previous Rx's Medication Instructions Recorded Last Taken Type Albuterol Sulfate [Ventolin HFA] 2 puff IH Q4H PRN #1 hfa.aer.ad 02/13/15 Unknown Rx Fluticasone [Flonase] 2 spray NS QDAY #1 bottle 02/13/15 Unknown Rx Loratadine [Claritin] 10 mg PO DAILY #30 tablet 02/13/15 Unknown Rx Amoxicillin [Amoxicillin TAB] 875 mg PO BID #20 tablet 07/05/17 Unknown Rx predniSONE [Deltasone] 40 mg PO QDAY #10 tab 07/05/17 Unknown Rx Ciprofloxacin HCl [Ciprofloxacin 500 mg PO BID #20 tablet 11/10/17 Unknown Rx TAB] Ibuprofen [Motrin 800 MG tab] 800 mg PO Q8HR PRN #20 tablet 11/10/17 Unknown Rx traMADol [Ultram] 50 mg PO Q6HR PRN #14 tablet 11/10/17 Unknown Rx Amoxicillin [Amoxicillin TAB] 875 mg PO BID #20 tablet 11/09/18 Unknown Rx Nitrofurantoin [place]/M-Cryst 100 mg PO Q12HR #14 capsule 02/01/19 Unknown Rx [Macrobid CAP] Allergies Allergy/AdvReac Type Severity Reaction Status Date / Time shrimp Allergy Hives Verified 01/31/19 19:44 ED Review of Systems ROS: Stated complaint: ABD PAIN Other details as noted in HPI Comment: All other systems reviewed and negative Constitutional: denies: chills, fever Gastrointestinal: abdominal pain Genitourinary: denies: dysuria, frequency ED Past Medical Hx - Past Medical History Hx Asthma: Yes - Surgical History Additional Surgical History: c-sectionx1 - Social History Smoking Status: Never Smoker Substance Use Type: None - Medications Home Medications: Home Medications Medication Instructions Recorded Confirmed Last Taken Type Albuterol Sulfate [Ventolin HFA] 2 puff IH Q4H PRN #1 hfa.aer.ad 02/13/15 Unknown Rx Fluticasone [Flonase] 2 spray NS QDAY #1 bottle 02/13/15 Unknown Rx Loratadine [Claritin] 10 mg PO DAILY #30 tablet 02/13/15 Unknown Rx Amoxicillin [Amoxicillin TAB] 875 mg PO BID #20 tablet 07/05/17 Unknown Rx predniSONE [Deltasone] 40 mg PO QDAY #10 tab 07/05/17 Unknown Rx Ciprofloxacin HCl [Ciprofloxacin 500 mg PO BID #20 tablet 11/10/17 Unknown Rx TAB] Ibuprofen [Motrin 800 MG tab] 800 mg PO Q8HR PRN #20 tablet 11/10/17 Unknown Rx traMADol [Ultram] 50 mg PO Q6HR PRN #14 tablet 11/10/17 Unknown Rx Amoxicillin [Amoxicillin TAB] 875 mg PO BID #20 tablet 11/09/18 Unknown Rx Nitrofurantoin [place]/M-Cryst 100 mg PO Q12HR #14 capsule 02/01/19 Unknown Rx [Macrobid CAP] ED Physical Exam - General Limitations: No Limitations General appearance: alert, in no apparent distress, obese - Head Head exam: Present: atraumatic, normocephalic - Eye Eye exam: Present: normal appearance - ENT ENT exam: Present: mucous membranes moist - Neck Neck exam: Present: normal inspection - Respiratory Respiratory exam: Present: normal lung sounds bilaterally. Absent: respiratory distress - Cardiovascular Cardiovascular Exam: Present: regular rate, normal rhythm - GI/Abdominal GI/Abdominal exam: Present: soft, tenderness (mild suprapubic). Absent: distended - Extremities Exam Extremities exam: Present: normal inspection - Neurological Exam Neurological exam: Present: alert, oriented X3 - Psychiatric Psychiatric exam: Present: normal affect, normal mood - Skin Skin exam: Present: warm, dry, intact, normal color ED Course Vital Signs 01/31/19 01/31/19 02/01/19 19:58 20:14 01:26 Temperature 98.0 F 98 F Pulse Rate 97 H 92 H 71 Respiratory 18 18 18 Rate Blood Pressure 145/79 145/79 Blood Pressure 127/72 [Left] O2 Sat by Pulse 98 99 100 Oximetry ED Medical Decision Making - Radiology Data Radiology results: report reviewed - Medical Decision Making Ultrasound of shows gestational sac, no pole. HCG serum is 1765. Patient reported light vaginal spotting. Advised to return in 48 hours to have repeat ultrasound and hormone level to rule out ectopic . - Differential Diagnosis IUP, UTI, ectopic preg Critical care attestation.: If time is entered above; I have spent that time in minutes in the direct care of this critically ill patient, excluding procedure time. ED Disposition Clinical Impression: , Abdominal pain, UTI (urinary tract infection) Disposition: TO HOME OR SELFCARE Is pt being admited?: No Condition: Stable Instructions: Ectopic (ED), (ED) Additional Instructions: Return to the ER or follow-up with your [facility]UL[facility] ASSEMBL[employer] PRESS OPERATOR in 2 days to obtain repeat hormone level and ultrasound. Your hormone level today is 1,765. Prescriptions: Nitrofurantoin [place]/M-Cryst [Macrobid CAP] 100 mg PO Q12HR #14 capsule Referrals: PRIMARY CARE, [Referring] - 3-5 Days [facility] [Provider Group] - 3-5 Days Time of Disposition: 02:16
== END 2019-02-01 02:37 | disposition home or self-care (01) ==
LOC: ED 19:34
DX: O23.41 Unspecified infection of urinary tract in pregnancy, first trimester (principal); J45.909 Unspecified asthma, uncomplicated; Z91.013 Allergy to seafood; Z79.1 Long term (current) use of non-steroidal anti-inflammatories (NSAID); Z79.899 Other long term (current) drug therapy; Z3A.01 Less than 8 weeks gestation of pregnancy
CPT/HCPCS: 36415; 76801; 76817; 81001; 84702; 87086; 99284

== ENCOUNTER 2019-06-10 18:41 | Outpatient (CLI) | payer MEDICAID ==
[2019-06-10] MEDS ORDERED: LACTATED RINGERS 1,000 ML IV ONE (19:30)
[2019-06-10 19:52] VITALS: BP 111/56
[2019-06-10 20:44] LABS: Bilirubin,Urine NEG (Negative); Blood,Urine NEG (Negative); Color,Urine Straw (Yellow); Mucus,Urine FEW /HPF; Protein,Urine <15 mg/dL mg/dL (Negative); Urobilinogen,Urine < 2.0 mg/dL (<2.0)
== END 2019-06-10 21:17 | disposition home or self-care (01) ==
LOC: TRG 18:41
PROVIDERS: ATTEND Obstetrics & Gynecology
DX: O46.92 Antepartum hemorrhage, unspecified, second trimester (principal); O26.892 Other specified pregnancy related conditions, second trimester; M54.5 Low back pain; R10.9 Unspecified abdominal pain; O47.02 False labor before 37 completed weeks of gestation, second trimester; Z3A.22 22 weeks gestation of pregnancy
CPT/HCPCS: 81001; 96360; J7120

== ENCOUNTER 2019-06-21 06:29 | Emergency (ER) | payer MEDICAID ==
[2019-06-21 08:23] VITALS: BP 126/78
[2019-06-21] MEDS ORDERED: ALBUTEROL 2.5 MG/3 ML NEBU IH ONE ×2 (09:10→11:48)
--- NOTE | 2019-06-21 09:16 | Emergency Department Report ---
HPI - General Chief Complaint: Upper Respiratory Infection Time Seen by Provider: 06/21/19 09:05 - HPI HPI: 24-year-old female, who is 24 weeks , presents to the emergency department with the complaint of some shortness of breath, wheezing, coughing that has been going on since this past weekend when she developed "a cold." She denies any fever, chest pain, back pain, lower extremity swelling. She [facility] the [facility] and everything was found to be normal/stable. With this she is with one live child. She has not taken anything for her current symptoms prior to arrival. She says that the symptoms worsened when she is ambulating or exerting herself and she will have some mild dizziness. She denies any headache, vision change or any other neurological deficits. ED Past Medical Hx - Past Medical History Previous Medical History?: No Hx Hypertension: No Hx Diabetes: No Hx Deep Vein Thrombosis: No Hx Renal Disease: No Hx Sickle Cell Disease: No Hx Seizures: No Hx Asthma: No Hx HIV: No - Surgical History Past Surgical History?: Yes Additional Surgical History: c-sectionx1 - Social History Smoking Status: Never Smoker Substance Use Type: None - Medications Home Medications: Home Medications Medication Instructions Recorded Confirmed Last Taken Type Vit-Fe Fumar-FA [ 1 tab PO DAILY 06/10/19 06/10/19 06/09/19 History Vitamin] ALBUTEROL Inhaler (OR & NICU) 2 puff IH QID PRN #1 inhalation 06/21/19 Unknown Rx [ProAir HFA Inhaler] ED Review of Systems ROS: Stated complaint: Other details as noted in HPI Comment: All other systems reviewed and negative Constitutional: denies: chills, fever Eyes: denies: eye pain, vision change ENT: congestion. denies: ear pain, throat pain Respiratory: cough, shortness of breath, wheezing Cardiovascular: denies: chest pain, palpitations, edema Gastrointestinal: denies: abdominal pain, vomiting Musculoskeletal: denies: back pain, arthralgia Neurological: denies: headache, weakness Physical Exam - Physical Exam Vital Signs: Vital Signs 06/21/19 06/21/19 06/21/19 06:43 07:22 08:19 Temperature 98 F Pulse Rate 97 H 99 H 98 H Respiratory 16 Rate Blood Pressure 133/87 126/78 O2 Sat by Pulse 92 96 Oximetry Physical Exam: GENERAL: The patient is well-developed well-nourished. HENT: Normocephalic. Atraumatic. Patient has moist mucous membranes. EYES: Extraocular motions are intact. NECK: Supple. Trachea is midline. CHEST/LUNGS: Mild to moderate expiratory wheezing. No tachypnea or accessory muscle use. There is no respiratory distress noted. HEART/CARDIOVASCULAR: Regular. There is no tachycardia. There is no murmur. ABDOMEN: Abdomen is soft, nontender. Patient has normal bowel sounds. There is no abdominal distention. SKIN: Skin is warm and dry. NEURO: The patient is awake, alert, and oriented. The patient is cooperative. The patient has no focal neurologic deficits. Normal speech. Cranial nerves II through XII grossly intact. MUSCULOSKELETAL: There is no tenderness or deformity. There is no limitation range of motion. There is no evidence of acute injury. ED Course Vital Signs 06/21/19 06/21/19 06/21/19 06:43 07:22 08:19 Temperature 98 F Pulse Rate 97 H 99 H 98 H Respiratory 16 Rate Blood Pressure 133/87 126/78 O2 Sat by Pulse 92 96 Oximetry - Consultations Consultation #1: 06/21/19 13:31 I spoke with Vanessa at [facility] was says it is okay to give the patient the albuterol and that we should send her home with albuterol inhaler. They are not concerned with the patient's complaints of pelvic cramping given the negative workup done, prior to the ED, [facility] the [facility]. ED Medical Decision Making - EKG Data -: EKG Interpreted by Me EKG shows normal: sinus rhythm, axis, intervals, QRS complexes, ST-T waves Rate: normal - EKG Data When compared to previous EKG there are: previous EKG unavailable Interpretation: normal EKG - Radiology Data Radiology results: image reviewed interpreted by me: Chest x-ray does not show any acute process. There are no pleural effusions, obvious pneumonia and there is no pneumothorax. - Medical Decision Making This patient presents with some wheezing, shortness of breath. On examination she has mild to moderate expiratory wheezing but does not appear in any respiratory distress. We discussed the risks versus benefits of a chest x- ray and a shielded one view AP chest x-ray was done that did not show any pneumonia, pleural effusions, pneumothorax, or any other acute process. Patient refused any laboratory work to be done. She was given an albuterol nebulized treatment and upon reevaluation she is feeling greatly improved. The bronchospasm has greatly improved. The patient was seen ambulatory and no longer has any type of dizziness and there is no exacerbation of her symptoms or increased work of breathing. Vital signs stable throughout her ED course. She'll be discharged home with an albuterol inhaler and encouragement to follow- up with primary care and [facility]. She will return to the ER with any worsening of her symptoms or any acute distress. - Differential Diagnosis asthma, pneumonia, bronchitis, viral URI Critical Care Time: No Critical care attestation.: If time is entered above; I have spent that time in minutes in the direct care of this critically ill patient, excluding procedure time. ED Disposition Clinical Impression: Bronchospasm Qualifiers: Weeks of gestation: 24 weeks Qualified Code(s): Z3A.24 - 24 weeks gestation of Disposition: DC-01 TO HOME OR SELFCARE Is pt being admited?: No Condition: Stable Additional Instructions: Please follow-up with your primary care physician and [facility]PA[facility] in the next few days. Return to the emergency Department with any worsening of your symptoms or any acute distress. Prescriptions: ALBUTEROL Inhaler (OR & NICU) [ProAir HFA Inhaler] 2 puff IH QID PRN #1 inhalation PRN Reason: Shortness Of Breath Referrals: SHELLIE WESLEY MD [Staff Physician] - 2-3 Days PCP, Your [Other] - 2-3 Days Forms: [facility] Discharge Summary Time of Disposition: 12:48
--- NOTE | 2019-06-21 10:36 | XRay Report ---
CHEST 1 VIEW INDICATION: SOB, cough. COMPARISON: 02/12/2015 FINDINGS: Support devices: None. Heart: Within normal limits. Lungs/Pleura: No acute air space or interstitial disease. Additional findings: None. IMPRESSION: 1. No acute findings. Signer Name: Gonzalo Galvez MD Signed: 06/21/2019 10:31 AM Workstation Name: [id number]
== END 2019-06-21 13:05 | disposition home or self-care (01) ==
LOC: ED 06:29 → TRG 06:29 → EDSTATUS 08:11 → ED 09:27 → TRG 13:05
DX: O99.512 Diseases of the respiratory system complicating pregnancy, second trimester (principal); J98.01 Acute bronchospasm; Z3A.24 24 weeks gestation of pregnancy; Z79.899 Other long term (current) drug therapy
CPT/HCPCS: 59025; 71045; 93005; 93010

== ENCOUNTER 2019-07-23 12:55 | Outpatient (CLI) | payer MEDICAID ==
[2019-07-23 13:54] VITALS: BP 108/61
[2019-07-23] MEDS ORDERED: LACTATED RINGERS 1,000 ML ONE (14:22)
== END 2019-07-23 16:17 | disposition home or self-care (01) ==
LOC: TRG 12:55 → LD 15:06 → TRG 16:17
PROVIDERS: ATTEND Obstetrics & Gynecology
DX: O26.893 Other specified pregnancy related conditions, third trimester (principal); M54.9 Dorsalgia, unspecified; O47.03 False labor before 37 completed weeks of gestation, third trimester; Z3A.28 28 weeks gestation of pregnancy
CPT/HCPCS: 59025; 96360; J7120; Q0177

== ENCOUNTER 2019-08-14 13:47 | Outpatient (CLI) | payer MEDICAID ==
[2019-08-14 16:28] VITALS: BP 120/70
[2019-08-14] MEDS ORDERED: LACTATED RINGERS 500 ML IV ONE (17:17)
[2019-08-14 17:35] LABS: Amorphous Crystals,Urine Few; Bilirubin,Urine NEG (Negative); Blood,Urine NEG (Negative); Color,Urine Yellow (Yellow); Mucus,Urine FEW /HPF; Protein,Urine <15 mg/dL mg/dL (Negative); Urobilinogen,Urine < 2.0 mg/dL (<2.0)
== END 2019-08-14 18:15 | disposition home or self-care (01) ==
LOC: TRG 13:47
PROVIDERS: ATTEND Obstetrics & Gynecology
DX: O47.03 False labor before 37 completed weeks of gestation, third trimester (principal); Z3A.31 31 weeks gestation of pregnancy
CPT/HCPCS: 59025; 81001

== ENCOUNTER 2019-09-01 15:47 | Outpatient (CLI) | payer MEDICAID ==
[2019-09-01 16:58] VITALS: BP 136/60
[2019-09-01] MEDS ORDERED: LACTATED RINGERS 500 ML IV ONE (16:59)
== END 2019-09-01 17:05 | disposition home or self-care (01) ==
LOC: TRG 15:47
PROVIDERS: ATTEND Obstetrics & Gynecology
DX: O47.03 False labor before 37 completed weeks of gestation, third trimester (principal); Z3A.33 33 weeks gestation of pregnancy
CPT/HCPCS: 59025

== ENCOUNTER 2019-09-26 07:13 | Inpatient (IN) | payer MEDICAID ==
[2019-09-26] MEDS ORDERED: BICITRA ORAL LIQD 30ML PO ONE (07:43)
[2019-09-26] MEDS ORDERED: METOCLOPRAMIDE 10 MG/2 ML INJ IV ONE (07:43)
[2019-09-26] MEDS ORDERED: FAMOTIDINE 20 MG/2 ML INJ IV ONE (07:43)
[2019-09-26] MEDS ORDERED: OXYTOCIN 20 UNIT/1000ML DRIP 20 UNITS/1,000 ML BAG IV SCH ×2 (08:00→14:00)
[2019-09-26] MEDS ORDERED: LACTATED RINGERS 1,000 ML IV SCH (08:00)
[2019-09-26 08:16] LABS: Basophils % (Auto) 0.5 % (0.0-1.8); Eosinophils # (Auto) 0.1 K/mm3 (0.0-0.4); Eosinophils % (Auto) 1.3 % (0.0-4.3); Hematocrit 37.2 % (30.3-42.9); Hemoglobin 12.2 gm/dl (10.1-14.3); Lymphocytes # (Auto) 1.6 K/mm3 (1.2-5.4); Lymphocytes % (Auto) 18.7 % (13.4-35.0); Mean Corpuscular HGB Conc 33 % (30-34); Mean Corpuscular Volume 88 fl (79-97); Monocytes # (Auto) 0.5 K/mm3 (0.0-0.8); Monocytes % (Auto) 6.2 % (0.0-7.3); Platelet Count 333 K/mm3 (140-440); Red Blood Count 4.23 M/mm3 (3.65-5.03); Red Cell Distribution Width 15.3 % (13.2-15.2)
--- NOTE | 2019-09-26 08:47 | Anesthesia Consultation ---
Anesthesia Consult and Med Hx Date of service: 09/26/19 - Airway Anesthetic Teeth Evaluation: Good ROM Head & Neck: Adequate Mental/Hyoid Distance: Adequate Mallampati Class: Class II Intubation Access Assessment: Probably Good - Pulmonary Exam CTA: Yes - Cardiac Exam Cardiac Exam: RRR - Pre-Operative Health Status ASA Pre-Surgery Classification: ASA3 Proposed Anesthetic Plan: Spinal - Pulmonary Hx Asthma: Yes (inhaler x 1 month) - Cardiovascular System Hx Hypertension: No - Central Nervous System Hx Seizures: No Hx Psychiatric Problems: No - Endocrine Hx Renal Disease: No Hx Hypothyroidism: No Hx Hyperthyroidism: No - Hematic Hx Anemia: No Hx Sickle Cell Disease: No - Other Systems Hx Alcohol Use: No Hx Obesity: Yes
--- NOTE | 2019-09-26 08:48 | Anesthesia Day of Surgery ---
Anesthesia Day of Surgery - Day of Surgery Patient Examined: Yes Patient H&P Reviewed: Yes Patient is NPO: Yes
--- NOTE | 2019-09-26 09:40 | History and Physical Report ---
History of Present Illness Date of examination: 09/26/19 Date of admission: 09/26/19 07:14 Chief complaint: contractions History of present illness: Pt is a 24 year old -[place] fmelae MADY 10/03/19 at 39w0d who presents with regular painful contractions since earlier this morning and cervical exam of 370/-2. She has a h/o one prior section and was scheduled for repeat on 10/01/19. She denies vaginal bleeding or leakage of fluid. She has had care at [facility] since transfer into care at 35 wks complicated by morbid obesity, glucose intolerance, previous x 1, BV and Yeast treated previously, and condyloma accuminata at the perineum. She is GBS positive. Past History Past Medical History: other (Morbid Obesity ) Past Surgical History: section [employer]IDE [employer]ENT[employer]IVE History: herpes, other (condyloma accuminata) Family/Genetic History: other (MS) Social history: no significant social history - Obstetrical History Expected Date of Delivery: 10/03/19 Actual Gestation: 39 Week(s) 0 Day(s) : 2 Para: 1 Hx # Term Pregnancies: 1 Number of Pregnancies: 0 Spontaneous Abortions: 0 Induced : 0 Number of Living Children: 1 Medications and Allergies Allergies Allergy/AdvReac Type Severity Reaction Status Date / Time Latex, Natural Rubber Allergy Intermediate Itching Verified 09/01/19 16:37 shrimp Allergy Hives Verified 01/31/19 19:44 Home Medications Medication Instructions Recorded Confirmed Last Taken Type Vit-Fe Fumar-FA [ 1 tab PO DAILY 06/10/19 09/26/19 08/31/19 20:00 History Vitamin] Active Meds: Active Medications Oxytocin/Sodium Chloride (Pitocin/Ns 20 Unit/1000ml Drip) 20 units in 1,000 mls @ 0 mls/hr IV TITR KIYA Lactated Ringer's (Lactated Ringers) 1,000 mls @ 2,250 mls/hr IV PREOP KIYA Stop: 09/27/19 08:27 Cefazolin Sodium 3 gm/ Sodium (Chloride) 100 mls @ 100 mls/30 min IV PREOP NR; Protocol Stop: 09/26/19 23:50 Review of Systems All systems: negative - Vital Signs Vital signs: Vital Signs Pulse BP 96 H 125/60 09/26/19 07:24 09/26/19 07:24 Temp Pulse Resp BP Pulse Ox 97.9 F 96 H 125/60 09/26/19 08:01 09/26/19 07:24 09/26/19 07:24 - Physical Exam Breasts: Positive: deferred Abdomen: Positive: soft (obese, gravid ) Genitourinary (Female): Positive: perineal/vulvar lesions (condylomata) Uterus: Positive: enlarged (gravid ) Extremities: Positive: edema (trace) - Obstetrical FHR: auscultation normal Cervical Dilatation: 3 (per RN ) Uterine Contraction Pattern: Regular Uterine Tone Measurement Phase: Resting Uterine Contraction Intensity: Strong/Firm Results Result Diagrams: 09/26/19 07:55 Abnormal lab results 09/26/19 Range/Units 07:55 RDW 15.3 H (13.2-15.2) % Seg Neutrophils % 73.3 H (40.0-70.0) % All other labs normal. Assessment and Plan A: IUP at 39w0d Previous x 1 Labor Morbid Obesity Shellfish and Latex Allergies GBS Positive P: Proceed with repeat section and other indicated procedures
[2019-09-26] MEDS ORDERED: SODIUM CHLORIDE 0.9% IRR 1,500 ML BOTTLE IR ONE (09:50)
[2019-09-26] MEDS ORDERED: WATER FOR IRRIG STERILE 1,500 ML BOTTLE IR ONE (09:50)
[2019-09-26] MEDS ORDERED: DEXMEDETOMIDINE 200 MCG/2 ML VIAL IV ONE (10:30)
[2019-09-26] MEDS ORDERED: PHENYLEPHRINE/NS 1,000 MCG/10 ML SYRINGE (OR USE) IV ONE (10:30)
[2019-09-26] MEDS ORDERED: PHENYLEPHRINE 10 MG/1 ML INJ SDV ONE (10:30)
[2019-09-26] MEDS ORDERED: BUPIVACAINE/PF (0.5%) 5 MG/1 ML 30 ML VIAL INFILTRATI ONE (10:30)
[2019-09-26] MEDS ORDERED: OXYTOCIN 10 UNIT/1 ML INJ ONE (10:30)
[2019-09-26] MEDS ORDERED: SODIUM CHLORIDE 0.9% 100 ML IVPB ONE (10:30)
[2019-09-26] MEDS ORDERED: KETAMINE/STERILE WATER 50 MG/ML SYRINGE ONE (10:30)
[2019-09-26] MEDS ORDERED: ONDANSETRON 4 MG/2 ML INJ ONE (10:30)
[2019-09-26] MEDS ORDERED: KETOROLAC 30 MG/1 ML INJ ONE (10:30)
[2019-09-26] MEDS ORDERED: propofoL 200 MG/20 ML VIAL IV ONE (10:30)
[2019-09-26] MEDS ORDERED: dexAMETHasone 20 MG/5 ML VIAL ONE (10:30)
--- NOTE | 2019-09-26 11:26 | Operative Report ---
Operative Report Operative Report: Date of procedure September 26, 2019 Preoperative diagnosis: 1) IUP at 39w0d 2) Previous x 1 3) Labor 4) Morbid Obesity BMI 54 Postoperative diagnosis: Same Procedure: Repeat low transverse section Surgeon: Sola Delong M.D. Anesthesia: Regional Findings: 1) Viable male , Apgars 7 and 9, weight 3515g, (7 lb 12 oz) in cephalic presentation. 2) Normal-appearing uterus ovaries and tubes 3) Large vessels in the lower uterine segment Estimated blood loss: 1500 mL IV fluids: 500 mL Urine output: 200 mL, clear at the end of the procedure Drains: Chavez to gravity Specimens: None Complications: Hemorrhage. Counts correct x 3 Disposition: Stable to PACU Indication for procedure: Pt is a 24 year old -[place]ian female at 39w0d who presents in labor with one prior section. Patient desires repeat section so the decision was made to proceed to delivery. Operation in detail: After the risks, benefits, alternatives and complications were explained to the patient she gave informed consent for the procedure. She was subsequently taken to the operating room where regional anesthesia was noted to be adequate. She was subsequently placed in the dorsal supine position with leftward tilt and prepped and draped in a normal sterile fashion. heart tones were noted prior to incision. A timeout was performed. A Pfannenstiel skin incision was made with the knife and carried down to the layer of the fascia with the Bovie. The fascia was incised in the midline and the fascial incision was extended bilaterally with the Bovie. The fascial incision was then stretched. The rectus muscles were then in the midline and partially transected for adequate visualization. The peritoneum was then entered sharpy between two Sherita clamps. The peritoneal incision was extended with good visualization of the bladder. The peritoneal incision was then stretched. An Jon retractor was placed. The bladder blade was then placed. A transverse incision was made in the lower uterine segment with a knife and extended bilaterally with the bandage scissors. Amniotomy was performed with egress of clear fluid. head delivered with ease, followed by shoulders and body. bulb suctioned at delivery. Cord clamped and cut. handed to NICU staff in attendance. Cord blood was collected. The placenta was then delivered manually. The uterus was cleared of all clots and debris. The hysterotomy was then reapproximated with 1 Vicryl in a running locked fashion. A second layer of the same suture was used in imbricating fashion. A figure of eight was placed on the left side of the hysterotomy to ensure hemostasis. The hysterotomy was inspected and hemostasis was noted. The gutters were irrigated and cleared of all clots and debris. The hysterotomy was again inspected and noted to be hemostatic. Surgicel was placed over the hysterotomy. The Jon retractor was removed. The peritoneum was reapproximated with 2-0 Vicryl in a running fashion incorporating the rectus muscles. Surgicel was placed over the rectus muscles. The fascia was reapproximated with 0 Vicryl in a running fashion. The subcutaneous tissue was reapproximated with 3-0 Vicryl in a running fashion. The skin was reapproximated with 4-0 Vicryl in a subcuticular fashion. The incision was then covered with steristrips and a pressure dressing. The procedure was then ended. The patient tolerated the procedure well and was taken to the PACU in stable condition. All instrument, lap, and needle counts were correct 3.
--- NOTE | 2019-09-26 11:26 | Procedure Note ---
OB Delivery Note - Delivery Date of Delivery: 09/26/19 Surgeon: JOSHUA ONEAL Estimated blood loss: other (1500 mL) - Section Preop diagnosis: repeat , other (labor ) Postop diagnosis: same section procedure: section, repeat low transverse Disposition: PACU Complications: intra-op hemorrhage Narrative: Please see operative report - Infant A at 1 minute: 7 at 5 minutes: 9 Infant Gender: Male (3515g (7lb 12 oz) @ 1037 am)
[2019-09-26] MEDS ORDERED: NALOXONE 0.4 MG/1 ML INJ IV PRN (13:40)
[2019-09-26] MEDS ORDERED: LANOLIN/ZINC/DIMETHICONE (LANSINOH) 7 GM TP PRN (13:40)
[2019-09-26] MEDS ORDERED: WITCH HAZEL/ GLYCERIN PAD TP PRN (13:40)
[2019-09-26] MEDS ORDERED: MORPHINE 4 MG/1 ML INJ IV PRN (13:40)
[2019-09-26] MEDS ORDERED: ACETAMINOPHEN 325 MG TAB PO PRN (13:40)
[2019-09-26] MEDS ORDERED: ONDANSETRON 4 MG/2 ML INJ IV PRN (13:40)
[2019-09-26] MEDS: D5W/LACTATED RINGERS 1,000 ML IV SCH ×2 (13:47→21:57)
[2019-09-26] MEDS: ceFAZolin/NS 1 GM/50 ML 1 GM/50 ML BAG IV SCH ×2 (16:31→23:00)
[2019-09-26] MEDS: MORPHINE 2 MG/1 ML INJ IV PRN ×2 (16:33→20:20)
[2019-09-26 16:53] LABS: Mean Corpuscular HGB Conc 33 % (30-34); Mean Corpuscular Volume 87 fl (79-97); Platelet Count 270 K/mm3 (140-440); Red Blood Count 3.78 M/mm3 (3.65-5.03)
--- NOTE | 2019-09-26 18:22 | Post Anesthesia Evaluation ---
- Post Anesthesia Evaluation Patient Participated: Yes Airway Patent: Yes Stable Respiratory Function: Yes Nausea/Vomiting: No Temp > 96.8F: Yes Pain Manageable: Yes Adequeate Hydration: Yes Anesthesia Complications: No Block Receding Appropriately: Yes
[2019-09-26] MEDS: KETOROLAC 30 MG/1 ML INJ IV SCH ×2 (18:37→22:59)
[2019-09-26] MEDS: MAGNESIUM HYDROXIDE (MOM) ORAL LIQD UDC PO SCH ×2 (18:40→19:40)
[2019-09-27] MEDS: oxyCODONE /ACETAMINOPHEN 5-325MG TAB PO PRN ×5 (00:30→22:05)
[2019-09-27] MEDS: MORPHINE 2 MG/1 ML INJ IV PRN (04:03)
[2019-09-27] MEDS: KETOROLAC 30 MG/1 ML INJ IV SCH ×2 (05:48→18:13)
[2019-09-27] MEDS: MAGNESIUM HYDROXIDE (MOM) ORAL LIQD UDC PO SCH ×4 (05:49→22:05)
[2019-09-27] MEDS ORDERED: TETANUS,DIPH,PERTUSS(ACELL) VACCINE 0.5 ML SYRINGE IM ONE (06:00)
[2019-09-27] MEDS ORDERED: MEASLES, MUMPS & RUBELLA 12,500 UNIT/0.5 ML VACCINE SUB-Q ONE (06:00)
[2019-09-27] MEDS: FERROUS SULFATE 325 MG TAB PO SCH (10:04)
[2019-09-27] MEDS: IBUPROFEN 800 MG TAB PO SCH ×2 (10:05→19:40)
[2019-09-27] MEDS ORDERED: FLU VACC QUAD 2019-20 (3 YR UP)/PF 60 MCG/0.5 ML SYRINGE IM ONE (12:00)
--- NOTE | 2019-09-27 12:19 | Progress Note ---
Assessment and Plan a/p pod 1 S/P REPEAT CSEC H/H STABLE ROUTINE pp CARE Subjective - Subjective Date of service: 09/27/19 Principal diagnosis: S/P REPEAT CSEC Patient reports: appetite normal, voiding normally, pain well controlled, flatus, ambulating normally [place]: doing well Objective - Vital Signs Latest vital signs: Vital Signs Temp Pulse Resp BP Pulse Ox 09/27/19 08:01 99.4 F 74 18 107/48 97 09/27/19 06:48 18 09/27/19 06:31 98.7 F 76 18 120/68 98 09/27/19 05:48 18 09/27/19 04:33 18 09/27/19 04:03 18 09/27/19 01:30 18 09/27/19 00:30 98.6 F 82 20 117/67 96 09/26/19 23:29 18 09/26/19 22:59 18 09/26/19 20:50 18 09/26/19 20:23 98.2 F 78 20 104/58 98 09/26/19 20:20 18 09/26/19 16:33 18 09/26/19 15:43 97.8 F 67 20 117/62 97 09/26/19 13:05 97.5 F L 64 18 127/75 98 09/26/19 12:24 68 15 120/70 96 Intake and Output 09/26/19 09/27/19 09/27/19 23:59 07:59 15:59 Intake Total 1350 600 Output Total 350 1300 Balance 1000 -700 Intake: IV 1050 ANCEF/NS 1 GM/50 ML 1 gm 50 In 50 ml @ 100 mls/hr IV Q8H KIYA Rx#:[id number] D5lr 1,000 ml @ 125 mls/ 1000 hr IV DIRECT KIYA Rx#: [id number] Oral 300 360 Intake, Free Water 240 Output: Urine 350 1300 Indwelling Catheter 350 1000 Void 300 Other: Total, Intake Amount 300 360 Total, Output Amount 350 300 # Voids Void 1 - Exam Breasts: Present: normal Cardiovascular: Present: Regular rate, Normal S1 Lungs: Present: Clear to auscultation, Normal air movement Abdomen: Present: normal appearance, soft, normal bowel sounds. Absent: distention, tenderness, guarding Vulva: both: normal Uterus: Present: normal, firm, fundal height below umbilicus. Absent: bogginess, tenderness Extremities: Present: normal Incision: Present: normal, dressed - Labs Labs: Abnormal lab results 09/27/19 Range/Units 00:07 Hgb 10.0 L (10.1-14.3) gm/dl Hct 29.0 L (30.3-42.9) %
[2019-09-28] MEDS: oxyCODONE /ACETAMINOPHEN 5-325MG TAB PO PRN ×4 (04:25→23:48)
[2019-09-28] MEDS: MAGNESIUM HYDROXIDE (MOM) ORAL LIQD UDC PO SCH ×4 (04:26→20:27)
[2019-09-28] MEDS: IBUPROFEN 800 MG TAB PO SCH ×3 (04:27→20:26)
--- NOTE | 2019-09-28 08:23 | Progress Note ---
Assessment and Plan - Patient Problems (1) delivery delivered Current Visit: Yes Status: Acute Plan to address problem: routine postoperative care discharge home tomorrow Subjective - Subjective Date of service: 09/28/19 Principal diagnosis: S/P REPEAT CSEC Interval history: Patient is tolerating regular diet. Pain is better controlled. Reports voiding Patient reports: appetite normal, voiding normally, pain well controlled : doing well Objective - Vital Signs Latest vital signs: Vital Signs Temp Pulse Resp BP Pulse Ox 09/28/19 05:25 18 09/28/19 04:25 18 09/27/19 23:46 98.4 F 93 H 20 127/65 98 09/27/19 23:05 18 09/27/19 22:05 18 09/27/19 20:40 18 09/27/19 19:40 18 09/27/19 17:03 98.3 F 88 16 121/72 93 Intake and Output 09/27/19 09/28/19 09/28/19 22:59 06:59 14:59 Intake Total 240 Balance 240 Intake: Intake, Free Water 240 Other: # Voids Void 1 1 - Exam Abdomen: Present: normal appearance Uterus: Present: normal, firm
[2019-09-28] MEDS: FERROUS SULFATE 325 MG TAB PO SCH (16:19)
[2019-09-29] MEDS: IBUPROFEN 800 MG TAB PO SCH ×2 (03:15→09:34)
[2019-09-29] MEDS: MAGNESIUM HYDROXIDE (MOM) ORAL LIQD UDC PO SCH ×2 (03:33→03:42)
[2019-09-29] MEDS: oxyCODONE /ACETAMINOPHEN 5-325MG TAB PO PRN ×2 (06:33→12:15)
[2019-09-29 08:56] VITALS: BP 119/68
[2019-09-29] MEDS: FERROUS SULFATE 325 MG TAB PO SCH (09:34)
--- NOTE | 2019-09-29 10:18 | Progress Note ---
Assessment and Plan A: Postoperative day #3 status post repeat section at term, morbid obesity, anemia P: Routine postoperative care. Discharge home today with follow-up in 2 weeks for an incision check Subjective - Subjective Date of service: 09/29/19 Principal diagnosis: S/P REPEAT CSEC Interval history: No overnight events Patient reports: appetite normal, voiding normally, pain well controlled, fl atus, bowel movement, ambulating normally : doing well Objective - Vital Signs Latest vital signs: Vital Signs Temp Pulse Resp BP Pulse Ox 09/29/19 08:01 98.1 F 80 16 119/68 99 09/29/19 06:33 18 09/29/19 00:51 97.9 F 85 20 135/76 100 09/28/19 23:48 18 09/28/19 16:32 98.1 F 98 H 18 127/73 97 Intake and Output 09/28/19 09/29/19 09/29/19 22:59 06:59 14:59 Intake Total 840 200 Balance 840 200 Intake: Oral 360 200 Intake, Free Water 480 Other: Total, Intake Amount 360 200 # Voids Void 3 2 # Bowel Movements 2 - Exam Breasts: Present: deferred Cardiovascular: Present: Regular rate Lungs: Present: Clear to auscultation Abdomen: Present: soft (obese ), normal bowel sounds Uterus: Present: fundal height below umbilicus Extremities: Present: edema (trace )
--- NOTE | 2019-09-29 10:19 | Discharge Summary ---
Providers - Providers Date of Admission: 09/26/19 07:14 Date of discharge: 09/29/19 Attending physician: JOSHUA ONEAL Primary care physician: JOSHUA ONEAL Hospitalization Reason for admission: active labor Delivery: Procedure: section, repeat low transverse Procedure details: Please see operative report Episiotomy: none Laceration: none Incision: intact Other procedures: none complications: none Discharge diagnosis: IUP at term delivered [place] baby: male Hospital course: Patient was admitted in active labor and went on to have a repeat section which she tolerated well. Her postoperative course was uncomplicated and she met discharge criteria on postoperative day #3. She will follow-up in the office in 2 weeks for an incision check. Condition at discharge: Stable Disposition: DC-01 TO HOME OR SELFCARE - Discharge Diagnoses (1) Term of male Status: Acute (2) Acute blood loss as cause of postoperative anemia Status: Acute (3) Morbid obesity Status: Acute Plan - Discharge Medications Prescriptions: Ferrous Sulfate [Feosol 325 MG tab] 325 mg PO BID #60 tablet Ibuprofen [Motrin] 800 mg PO Q8HR PRN #30 tablet PRN Reason: Pain, Moderate (4-6) oxyCODONE /ACETAMINOPHEN [Percocet 5/325] 1 tab PO Q6HR PRN #40 tablet PRN Reason: Pain - Provider Discharge Summary Activity: routine, no sex for 6 weeks, no heavy lifting 4 weeks, no strenuous exercise Diet: routine Instructions: routine Additional instructions: [] Smoking cessation referral if applicable(refer to patient education folder for contact #) [] Refer to [facility]'s [facility] Booklet Call your doctor immediately for: * Fever > 100.5 * Heavy vaginal bleeding ( >1 pad per hour) * Severe persistent headache * Shortness of breath * Reddened, hot, painful area to leg or breast * Drainage or odor from incision. * Keep incision clean and dry at all times and follow doctor's instructions regarding bathing/showering - Follow up plan Follow up: JOSHUA ONEAL MD [Primary Care Provider] - 10/12/19 (Please call to schedule your incision check Please schedule your son's circumcision before he is one month old. If you would like to watch the circumcision, please schedule with Dr Mixon. )
== END 2019-09-29 14:00 | disposition home or self-care (01) | DRG 765 ==
LOC: TRG 07:13 → APU 07:14 → TRG 07:14 → OB 13:39
PROVIDERS: ADMIT Obstetrics & Gynecology; ATTEND Obstetrics & Gynecology
PROC: 10D00Z1 Extraction of Products of Conception, Low, Open Approach (ICD-10-PCS; principal; 2019-09-26)
PROC: 3E0234Z Introduction of Serum, Toxoid and Vaccine into Muscle, Percutaneous Approach (ICD-10-PCS; 2019-09-27)
PROC: 3E0134Z Introduction of Serum, Toxoid and Vaccine into Subcutaneous Tissue, Percutaneous Approach (ICD-10-PCS; 2019-09-27)
DX: O99.214 Obesity complicating childbirth (principal); D62 Acute posthemorrhagic anemia; O99.354 Diseases of the nervous system complicating childbirth; O34.219 Maternal care for unspecified type scar from previous cesarean delivery; O90.81 Anemia of the puerperium; O99.824 Streptococcus B carrier state complicating childbirth; E66.01 Morbid (severe) obesity due to excess calories; J45.909 Unspecified asthma, uncomplicated; Z3A.39 39 weeks gestation of pregnancy; Z37.0 Single live birth; Z23 Encounter for immunization; Z71.3 Dietary counseling and surveillance; Z91.013 Allergy to seafood; Z91.040 Latex allergy status
CPT/HCPCS: 36415; 85014; 85018; 85025; 85027; 86850; 86900; 86901; G0378; A6250; J0690; J1100; J1885; J2270; J2370; J2405; J2590; J2704; J2765; J3490; J7120; J7121

== ENCOUNTER 2019-09-30 22:57 | Emergency (ER) | payer MEDICAID ==
[2019-09-30] MEDS ORDERED: ACETAMINOPHEN 325 MG TAB PO ONE (23:46)
[2019-09-30] MEDS ORDERED: ACETAMINOPHEN 325 MG TAB ONE (23:49)
[2019-10-01 00:07] LABS: Basophils % (Auto) 0.4 % (0.0-1.8); Eosinophils # (Auto) 0.4 K/mm3 (0.0-0.4); Eosinophils % (Auto) 5.4 % (0.0-4.3); Hematocrit 30.9 % (30.3-42.9); Hemoglobin 10.1 gm/dl (10.1-14.3); Lymphocytes # (Auto) 1.5 K/mm3 (1.2-5.4); Lymphocytes % (Auto) 21.8 % (13.4-35.0); Mean Corpuscular HGB Conc 33 % (30-34); Mean Corpuscular Volume 89 fl (79-97); Monocytes # (Auto) 0.5 K/mm3 (0.0-0.8); Monocytes % (Auto) 7.2 % (0.0-7.3); Platelet Count 397 K/mm3 (140-440); Red Blood Count 3.47 M/mm3 (3.65-5.03); Red Cell Distribution Width 15.3 % (13.2-15.2)
[2019-10-01 00:20] LABS: Alanine Aminotransferase 16 units/L (7-56); Albumin 3.1 g/dL (3.9-5); BUN/Creatinine Ratio 13; Blood Urea Nitrogen 9 mg/dL (7-17); Calcium 8.7 mg/dL (8.4-10.2); Hemolysis Index 0
[2019-10-01] MEDS ORDERED: diphenhydrAMINE 50 MG/ML VIAL IV ONE (01:59)
[2019-10-01] MEDS ORDERED: hydrALAZINE 20 MG/1 ML INJ IV ONE (01:59)
[2019-10-01] MEDS ORDERED: METOCLOPRAMIDE 10 MG/2 ML INJ IV ONE (01:59)
[2019-10-01] MEDS ORDERED: SODIUM CHLORIDE 0.9% 500 ML 500 ML IV ONE (01:59)
--- NOTE | 2019-10-01 02:01 | Emergency Department Report ---
ED General Adult HPI - General Chief complaint: Wound/Laceration Stated complaint: POST W/INCISION PAIN AND BACK PAIN DIZZY Time Seen by Provider: 10/01/19 01:44 Source: patient, RN notes reviewed, old records reviewed Mode of arrival: Ambulatory Limitations: No Limitations - History of Present Illness Initial comments: During the history and physical examination, I am coffee blender and escorted by ER contact lens blocker and cutter/electronic test technician Tomaas Chaney Patient is a 24-year-old female. The patient is not known to myself previously. She was recently admitted to the [facility] service for repeat section. She met discharge criteria on postoperative day 3. She was discharged with iron sulfate, ibuprofen, and oxycodone acetaminophen. The patient presents to the ER today with multiple complaints. Her first complaint is headache. The headache is frontal and bitemporal. The headache has been present for days. It decreases when she lays flat, and increases when sitting up. There is no neck pain or neck stiffness. There is mild sensitivity to light and to sound. The patient indicates no extremity weakness and no numbness. The patient does not indicate that this is the worst headache of her life. The patient had an epidural for her recent . She reports that she told her [facility] about this headache, and that they recommended that she take ibuprofen, as well as oxycodone acetaminophen. Her next complaint is lightheadedness and dizziness She feels like she might pass out. This is intermittent. It is painless. It does not have exacerbating or relieving factors. She has not actually passed out. There is no leg pain or leg swelling. There is no hematemesis or bright red blood per rectum. Her next complaint is question wound drainage from her site. This has started over the past 12 to 24 hours. She has mild abdominal pain. Question fever, she is not sure. No irritative or obstructive urinary symptoms. No issues with hypertension that she is aware of during her previous . -: Gradual, hour(s), days(s) Location: head, abdomen Radiation: other Severity scale (0 -10): 10 Quality: other Consistency: other Improves with: other Worsens with: other - Related Data Home Medications Medication Instructions Recorded Confirmed Last Taken Vit-Fe Fumar-FA [ 1 tab PO DAILY 06/10/19 09/26/19 08/31/19 20:00 Vitamin] Previous Rx's Medication Instructions Recorded Last Taken Type Ferrous Sulfate [Feosol 325 MG tab] 325 mg PO BID #60 tablet 09/26/19 Unknown Rx Ibuprofen [Motrin] 800 mg PO Q8HR PRN #30 tablet 09/26/19 Unknown Rx oxyCODONE /ACETAMINOPHEN [Percocet 1 tab PO Q6HR PRN #40 tablet 09/26/19 Unknown Rx 5/325] Metoclopramide [Reglan] 10 mg PO QID PRN #20 tab 10/01/19 Unknown Rx Allergies Allergy/AdvReac Type Severity Reaction Status Date / Time Latex, Natural Rubber Allergy Intermediate Itching Verified 09/01/19 16:37 shrimp Allergy Hives Verified 01/31/19 19:44 ED Review of Systems ROS: Stated complaint: POST W/INCISION PAIN AND BACK PAIN DIZZY Other details as noted in HPI Constitutional: malaise Eyes: denies: eye discharge ENT: denies: congestion Cardiovascular: other Gastrointestinal: denies: nausea, vomiting, diarrhea Genitourinary: other (Still having vaginal bleeding) Skin: denies: lesions Neurological: headache, weakness Hematological/Lymphatic: denies: easy bleeding ED Past Medical Hx - Past Medical History Previous Medical History?: Yes Hx Hypertension: No Hx Diabetes: No Hx Deep Vein Thrombosis: No Hx Renal Disease: No Hx Sickle Cell Disease: No Hx Seizures: No Hx Asthma: Yes (inhaler x 1 month) Hx HIV: No - Surgical History Past Surgical History?: Yes Additional Surgical History: X 2 - Social History Smoking Status: Never Smoker Substance Use Type: None - Medications Home Medications: Home Medications Medication Instructions Recorded Confirmed Last Taken Type Vit-Fe Fumar-FA [ 1 tab PO DAILY 06/10/19 09/26/19 08/31/19 20:00 History Vitamin] Ferrous Sulfate [Feosol 325 MG tab] 325 mg PO BID #60 tablet 09/26/19 Unknown Rx Ibuprofen [Motrin] 800 mg PO Q8HR PRN #30 tablet 09/26/19 Unknown Rx oxyCODONE /ACETAMINOPHEN [Percocet 1 tab PO Q6HR PRN #40 tablet 09/26/19 Unknown Rx 5/325] Metoclopramide [Reglan] 10 mg PO QID PRN #20 tab 10/01/19 Unknown Rx ED Physical Exam - General Limitations: No Limitations General appearance: alert, anxious, obese - Head Head exam: Present: atraumatic, normocephalic - Eye Eye exam: Present: normal appearance, EOMI, other (Visual acuity intact to finger counting and color perception at a close distance). Absent: nystagmus - ENT ENT exam: Present: normal exam, normal orophraynx, mucous membranes moist, normal external ear exam - Neck Neck exam: Present: normal inspection, full ROM. Absent: tenderness, meningismus - Respiratory Respiratory exam: Present: normal lung sounds bilaterally. Absent: respiratory distress - Cardiovascular Cardiovascular Exam: Present: regular rate, normal rhythm, normal heart sounds. Absent: bradycardia, tachycardia, irregular rhythm, systolic murmur, diastolic murmur, rubs, gallop - GI/Abdominal GI/Abdominal exam: Present: soft, tenderness, other (Minimal suprapubic tenderne ss over the site. There is no obvious redness, pus or streaking. Chaperoned by contact lens blocker and cutter Erin Chaney). Absent: distended, guarding, rebound, rigid, pulsatile mass - Extremities Exam Extremities exam: Present: normal inspection, full ROM, other (2+ pulses noted in the bilateral upper and lower extremities. There is no palpable cord. negative Homans sign. Muscular compartments are soft. The pelvis is stable.). Absent: pedal edema, calf tenderness - Back Exam Back exam: Present: normal inspection, full ROM. Absent: tenderness, CVA tenderness (R), CVA tenderness (L), paraspinal tenderness, vertebral tenderness - Neurological Exam Neurological exam: Present: alert, oriented X3, other (There is no facial droop. The tongue is midline. Extraocular movements are intact bilaterally. There is 5 out of 5 strength in bilateral upper and lower extremities. Sensation is intact to light touch bilateral upper and lower extremities. There is no past- pointing. There is no pronator drift. There is normal [id number]. There is a normal gait.). Absent: motor sensory deficit - Psychiatric Psychiatric exam: Present: anxious - Skin Skin exam: Present: warm, dry, intact, normal color. Absent: rash ED Course Vital Signs 09/30/19 10/01/19 10/01/19 23:31 02:14 02:17 Temperature 100.2 F H 98.3 F Pulse Rate 83 77 77 Respiratory 20 16 Rate Blood Pressure 152/89 144/67 Blood Pressure 144/67 [Left] O2 Sat by Pulse 100 99 Oximetry 10/01/19 05:10 Temperature 98.2 F Pulse Rate 72 Respiratory 16 Rate Blood Pressure Blood Pressure 132/65 [Left] O2 Sat by Pulse 100 Oximetry - Reevaluation(s) Reevaluation #1: 10/01/19 03:15 Differential diagnosis, including not limited to: Migraine headache, tension headache, cluster headache, post epidural headache, pulmonary embolism, orthostasis, vagal event, urinary tract infection, intra-abdominal infection, bleeding Assessment and plan: 24-year-old female with multiple complaints Complaint #1, headache present for days. This is most likely a post dural headache. GCS of 15, no focal neurologic deficits, no historical factors to suggest meningitis or subarachnoid hemorrhage. We will treat her symptoms, obtain noncontrast CT scan of the brain, and we will reassess. Complaint #2, lightheadedness and near syncope. Low-grade temperature, elevated d-dimer, recent delivery, CT scan of the chest ordered to evaluate for pulmonary embolism. She will be given IV fluids. X-ray of the chest is unremarkable. This is unlikely to be acute coronary syndrome, patient low risk for major adverse cardiac event as per heart score. Reassess after CT scan of the chest. Complaints #3, abdominal wound with possible discharge and low-grade temperature. Wound appears to be healing well. I do not appreciate any significant discharge. Low-grade temperature resolved. CT scan abdomen pelvis pending. We will reassess. Discussed this plan of care with patient, who verbalized understanding and endorsed agreement. Reevaluation #2: 10/01/19 04:50 Patient is observed in this department for hours, without clinical decompensation. Noncontrast CT scan of the brain is negative for acute disease. CT scan of the chest is negative for acute disease. ED Medical Decision Making - Lab Data Result diagrams: 09/30/19 23:53 09/30/19 23:53 Vital Signs 09/30/19 10/01/19 10/01/19 23:31 02:14 02:17 Temperature 100.2 F H 98.3 F Pulse Rate 83 77 77 Respiratory 20 16 Rate Blood Pressure 152/89 144/67 Blood Pressure 144/67 [Left] O2 Sat by Pulse 100 99 Oximetry Lab Results 09/30/19 09/30/19 10/01/19 Range/Units 23:53 23:53 02:15 WBC 7.0 (4.5-11.0) K/mm3 RBC 3.47 L (3.65-5.03) M/mm3 Hgb 10.1 (10.1-14.3) gm/dl Hct 30.9 (30.3-42.9) % MCV 89 (79-97) fl MCH 29 (28-32) pg MCHC 33 (30-34) % RDW 15.3 H (13.2-15.2) % Plt Count 397 (140-440) K/mm3 Lymph % (Auto) 21.8 (13.4-35.0) % Whitley % (Auto) 7.2 (0.0-7.3) % Eos % (Auto) 5.4 H (0.0-4.3) % Baso % (Auto) 0.4 (0.0-1.8) % Lymph # 1.5 (1.2-5.4) K/mm3 Whitley # 0.5 (0.0-0.8) K/mm3 Eos # 0.4 (0.0-0.4) K/mm3 Baso # 0.0 (0.0-0.1) K/mm3 Seg Neutrophils % 65.2 (40.0-70.0) % Seg Neutrophils # 4.6 (1.8-7.7) K/mm3 PT 11.8 L (12.2-14.9) Sec. INR 0.86 L (0.87-1.13) D-Dimer 1981.50 H (0-234) ng/mlDDU Sodium 142 (137-145) mmol/L Potassium 4.4 (3.6-5.0) mmol/L Chloride 105.9 (98-107) mmol/L Carbon Dioxide 24 (22-30) mmol/L Anion Gap 17 mmol/L BUN 9 (7-17) mg/dL Creatinine 0.7 (0.7-1.2) mg/dL Estimated GFR > 60 ml/min BUN/Creatinine Ratio 13 % Glucose 112 H (65-100) mg/dL Calcium 8.7 (8.4-10.2) mg/dL Magnesium (1.7-2.3) mg/dL Total Bilirubin < 0.20 (0.1-1.2) mg/dL AST 26 (5-40) units/L ALT 16 (7-56) units/L Alkaline Phosphatase 90 (35-129) units/L Total Creatine Kinase (30-135) units/L Troponin T (0.00-0.029) ng/mL Total Protein 6.3 (6.3-8.2) g/dL Albumin 3.1 L (3.9-5) g/dL Albumin/Globulin Ratio 1.0 % / Range/Units 02:15 WBC (4.5-11.0) K/mm3 RBC (3.65-5.03) M/mm3 Hgb (10.1-14.3) gm/dl Hct (30.3-42.9) % MCV (79-97) fl MCH (28-32) pg MCHC (30-34) % RDW (13.2-15.2) % Plt Count (140-440) K/mm3 Lymph % (Auto) (13.4-35.0) % Whitley % (Auto) (0.0-7.3) % Eos % (Auto) (0.0-4.3) % Baso % (Auto) (0.0-1.8) % Lymph # (1.2-5.4) K/mm3 Whitley # (0.0-0.8) K/mm3 Eos # (0.0-0.4) K/mm3 Baso # (0.0-0.1) K/mm3 Seg Neutrophils % (40.0-70.0) % Seg Neutrophils # (1.8-7.7) K/mm3 PT (12.2-14.9) Sec. INR (0.87-1.13) D-Dimer (0-234) ng/mlDDU Sodium (137-145) mmol/L Potassium (3.6-5.0) mmol/L Chloride (98-107) mmol/L Carbon Dioxide (22-30) mmol/L Anion Gap mmol/L BUN (7-17) mg/dL Creatinine (0.7-1.2) mg/dL Estimated GFR ml/min BUN/Creatinine Ratio % Glucose (65-100) mg/dL Calcium (8.4-10.2) mg/dL Magnesium 1.90 (1.7-2.3) mg/dL Total Bilirubin (0.1-1.2) mg/dL AST (5-40) units/L ALT (7-56) units/L Alkaline Phosphatase (35-129) units/L Total Creatine Kinase 419 H (30-135) units/L Troponin T < 0.010 (0.00-0.029) ng/mL Total Protein (6.3-8.2) g/dL Albumin (3.9-5) g/dL Albumin/Globulin Ratio % - EKG Data -: EKG Interpreted by Nc EKG shows normal: sinus rhythm Rate: normal - EKG Data When compared to previous EKG there are: previous EKG unavailable 10/01/19 03:11 The EKG today shows a sinus rhythm, 75 bpm, there is a normal axis, the QTc is 429 ms, normal intervals, motion artifact, unremarkable EKG, no prior for comparison, this is not a STEMI - Radiology Data Radiology results: report reviewed, image reviewed Print Report Referring Physician: NIKOLAY KATE Patient Name: LEWIS DECKER Date of : 1995 Sex: Female Report Date: 2019-10-01 Report Status: [place] [address] XRay Report Signed Patient: LEWIS DECKER MR#: [id number] : 1995 Acct:[id number] Age/Sex: 24 / F ADM Date: 09/30/19 Loc: ED At [facility] Dr: Ordering Physician: NIKOLAY KATE MD Date of Service: 10/01/19 Procedure(s): XR chest 1V ap Accession Number(s): [id number] cc: NIKOLAY KATE MD Fluoro Time In Minutes: CHEST 1 VIEW 10/01/2019 2:20 AM INDICATION / CLINICAL INFORMATION: Dizziness, light headedness, tachycardia. COMPARISON: One view of the chest from 06/21/2019. FINDINGS: SUPPORT DEVICES: None. HEART / MEDIASTINUM: No significant abnormality. LUNGS / PLEURA: No significant pulmonary or pleural abnormality. No pneumothorax. ADDITIONAL FINDINGS: No significant additional findings. IMPRESSION: 1. No acute abnormality of the chest. Signer Name: Masoud Anderson MD Signed: 10/01/2019 2:42 AM Workstation Name: [id number] Transcribed By: MN Dictated By: Masoud Anderson MD Electronically Authenticated By: Masoud Anderson MD Signed Date/Time: 10/01/19 0242 Critical care attestation.: If time is entered above; I have spent that time in minutes in the direct care of this critically ill patient, excluding procedure time. ED Disposition Clinical Impression: Lightheaded, History of , Headache Disposition: DC-01 TO HOME OR SELFCARE Is pt being admited?: No Does the pt Need Aspirin: No Condition: Stable Additional Instructions: Do not take metformin medication for the next 2 days, if patient takes his medication. Drink 4 to 6 cups of water per day, and patient may also drink caffeinated beverages, such as Coca-Cola, or Mountain Dew soda. If drinking caffeinated beverages, do not breast-feed for 24 hours Patient received IV contrast today via CT scan, and should not breast-feed for t he next 24 hours. Avoid heavy lifting and strenuous physical activity. Follow- up with your [facility] doctor within the next 3 to 5 days. Continue the outpatient medications that were prescribed for the patient during her recent hospitalization. Advance diet as tolerated. Return to the emergency room right away with new, worsened or different symptoms, symptoms not present on the initial emergency room evaluation, projectile vomiting, change in mental status, confusion, inability to tolerate liquid feeds. Prescriptions: Metoclopramide [Reglan] 10 mg PO QID PRN #20 tab PRN Reason: Headache Referrals: JOSHUA ONEAL MD [Staff Physician] - 3-5 Days
[2019-10-01 02:41] LABS: INR 0.86 (0.87-1.13)
--- NOTE | 2019-10-01 02:46 | XRay Report ---
CHEST 1 VIEW 10/01/2019 2:20 AM INDICATION / CLINICAL INFORMATION: Dizziness, light headedness, tachycardia. COMPARISON: One view of the chest from 06/21/2019. FINDINGS: SUPPORT DEVICES: None. HEART / MEDIASTINUM: No significant abnormality. LUNGS / PLEURA: No significant pulmonary or pleural abnormality. No pneumothorax. ADDITIONAL FINDINGS: No significant additional findings. IMPRESSION: 1. No acute abnormality of the chest. Signer Name: Masoud Anderson MD Signed: 10/01/2019 2:42 AM Workstation Name: [id number]
[2019-10-01] MEDS: SODIUM CHLORIDE 0.9% 1000 ML 1,000 ML with CAFFEINE/SODIUM BENZOATE 500 MG IV ONE ×2 (03:11→05:01)
--- NOTE | 2019-10-01 03:21 | Cat Scan Report ---
CT HEAD WITHOUT CONTRAST INDICATION : POST DURAL HEADACHE. TECHNIQUE: Axial, coronal and sagittal CT imaging was performed from the skull apex through the skul l base without contrast. All CT scans at this location are performed using CT dose reduction for ALA RA by means of automated exposure control. COMPARISON: None available. FINDINGS: PARENCHYMA: No mass, midline shift, hemorrhage, extraaxial collection or acute territorial infarctio n. VENTRICLES: Symmetric and normal in size. SOFT TISSUES: No significant abnormality of the included soft tissues/orbits. BONES: No acute osseous abnormality. SINUSES: No significant abnormality. ADDITIONAL FINDINGS: None. IMPRESSION: 1. No acute intracranial abnormality. Signer Name: Masoud Anderson MD Signed: 10/01/2019 3:17 AM Workstation Name: [email or web address]
[2019-10-01 03:51] LABS: Bacteria,Urine 1+ /HPF (Negative); Bilirubin,Urine NEG (Negative); Blood,Urine LG (Negative); Color,Urine Yellow (Yellow); Mucus,Urine FEW /HPF; Protein,Urine <15 mg/dL mg/dL (Negative); Urobilinogen,Urine < 2.0 mg/dL (<2.0)
--- NOTE | 2019-10-01 04:27 | Cat Scan Report ---
CT ABDOMEN AND PELVIS WITH CONTRAST INDICATION: Lightheadedness, low-grade fever, recent . COMPARISON: No relevant prior imaging study available. TECHNIQUE: Axial, coronal and sagittal CT imaging of the abdomen and pelvis was performed after inje ction of 100 cc Omnipaque [address] scans at this location are performed using CT dose re duction for ALARA by means of automated exposure control. FINDINGS: LOWER CHEST: No significant abnormality. LIVER: No significant abnormality. BILIARY: No significant abnormality. PANCREAS: No significant abnormality. SPLEEN: No significant abnormality. ADRENALS: No significant abnormality. KIDNEYS AND URETERS: No significant abnormality. GI TRACT: No significant abnormality of the stomach, small bowel or colon. Unremarkable appendix. PERITONEUM: No free fluid. No free air. No fluid collection. LYMPH NODES: No significant adenopathy. VASCULATURE: No significant abnormality. URINARY BLADDER: No significant abnormality. REPRODUCTIVE ORGANS: Expected appearance of the uterus. No significant abnormality. ADDITIONAL FINDINGS: Expected edema and gas along the lower abdominal/pelvic wall given the reported recent . SKELETAL SYSTEM: No significant abnormality. IMPRESSION: 1. No acute abnormality of the abdomen or pelvis. 2. Additional findings as above. Signer Name: Masoud Anderson MD Signed: 10/01/2019 4:22 AM Workstation Name: [email or web address]
--- NOTE | 2019-10-01 04:29 | Cat Scan Report ---
CTA CHEST WITH IV CONTRAST INDICATION: Lightheadedness. Near syncope. Elevated d-dimer. Recent childbirth. TECHNIQUE: Axial CT images were obtained through the chest after injection of 100 cc Omnipaque 350 IV contrast. 3 plane MIP reconstructions were produced. All CT scans at this location are performed using CT dose reduction for ALARA by means of automated exposure control. COMPARISON: One view of the chest from earlier today. FINDINGS: PULMONARY ARTERIES: No pulmonary emboli. AORTA AND ARTERIES: No acute abnormality. MEDIASTINUM: The thyroid gland is unremarkable. The trachea and main bronchi are patent and normal in caliber. No mass or lymphadenopathy. Normal heart size without a pericardial effusion. LUNGS: No suspicious consolidation, nodule or mass. No pneumothorax or pleural effusion. ADDITIONAL FINDINGS: None. UPPER ABDOMEN: No acute findings. BONES: No significant osseous abnormality. IMPRESSION: 1. No CT evidence for pulmonary embolism. 2. No acute abnormality of the chest. Signer Name: Masoud Anderson MD Signed: 10/01/2019 4:24 AM Workstation Name: [id number]
[2019-10-01 05:50] VITALS: BP 132/65
== END 2019-10-01 05:10 | disposition home or self-care (01) ==
LOC: ED 22:57
DX: R42 Dizziness and giddiness (principal); R51 Headache; J45.909 Unspecified asthma, uncomplicated; Z98.890 Other specified postprocedural states; Z79.1 Long term (current) use of non-steroidal anti-inflammatories (NSAID); Z79.899 Other long term (current) drug therapy; Z91.040 Latex allergy status; Z91.048 Other nonmedicinal substance allergy status
CPT/HCPCS: 36415; 70450; 71045; 71275; 74177; 80053; 81001; 82550; 83735; 84484; 85025; 85379; 85610; 93005; 93010; 96361; 96374; 96375; 99284; J1200; J2765; J7030; J7040; Q9967